=== PATIENT | female | born 2000 | race Caucasian/White ===

== ENCOUNTER 2021-06-08 14:36 | Emergency (ER) | payer OTHER ==
--- OUTSIDE RECORDS SUMMARY | 2021-06-08 14:40 | XMS REPORT | Continuity of Care Document ---
:2000 Author Organization [facility] t Address [address] [place] [address] Care Team Providers Name Role Phone Doreen Squires Primary Care Physician Manpreet SUAZO R Attending Clinician Doctor Unassigned, Name Attending Clinician Unavailable Payers Payer Name Policy Type Policy Effective Date Expiration Source Number Date MEDICAID PENDING 2021 [facility] PENDINGMEDICAID 00:00:00 [place] [facility] PENDINGPENDING20 [facility] [id number] [place] [id number] Advance Directives Directive Decision Effective Termination Comments Source Date Date Healthcare Agents on N/A Univ ersity FileNameRelationshipHealthcare [facility] Agent Medical RelationshipCommunicationUniversity Of [place] [facility] DirvonowskyMotherHealth Care [phone] (Home) Problems This patient has no known problems. Allergies, Adverse Reactions, Alerts Allergy Allergy Status Severity Reaction(s) Onset Inactive Treating Comm ents Source Name Type Date Date Clinician Iodine Drug Active Hives Univers Allergy 5-06 ity of 00:00: [address] [facility] Drug Active Hives 2020- Univers h Allergy 5-06 ity of Derived 00:00: [address] Social History Social Habit Start Date Stop Date Quantity Comments Source ASSERTION 2021-02-02 University of 00:00:00 [facility] History of Cigarette Smoker Universi ty of tobacco use [facility] Exposure to Not sure University of SARS-CoV-2 [facility] (event) Branch Tobacco use and 2021-03-20 2021-03-20 Never used Universit y of exposure 00:00:00 00:00:00 [facility] Alcohol intake 2021-03-20 2021-03-20 Ex-drinker University 00:00:00 00:00:00 (finding) [facility] Tobacco Comment 2021-03-20 2021-03-20 Stopping today Unive rsity of 00:00:00 00:00:00 [facility] Sex Assigned At [birth year] Universit y of 00:00:00 00:00:00 [facility] Smoking Status Start Date Stop Date Source Current some day smoker 2021-03-20 00:00:00 [facility] Medications This patient has no known medications. Vital Signs Vital Name Observation Time Observation Value Comments Source Systolic blood 2021-03-20 18:27:00 138 mm[Hg] Univer sity of [facility] Diastolic blood 2021-03-20 18:27:00 79 mm[Hg] Unive rsity of [facility] Heart rate 2021-03-20 18:27:00 86 /[facility] Body temperature 2021-03-20 18:27:00 36.61 Luh [facility] Respiratory rate 2021-03-20 18:27:00 16 /min [facility] Body height 2021-03-20 18:27:00 169 cm [facility] Body weight 2021-03-20 18:27:00 80.287 kg [facility] BMI 2021-03-20 18:27:00 28.11 kg/m2 [facility] Systolic blood 2021-03-20 18:27:00 138 mm[Hg] Univer sity of [facility] Diastolic blood 2021-03-20 18:27:00 79 mm[Hg] Unive rsity of [facility] Heart rate 2021-03-20 18:27:00 86 /min Universi [facility] Body temperature 2021-03-20 18:27:00 36.61 [facility] 2021-03-20 18:27:00 16 [facility] height 2021-03-20 18:27:00 169 cm [facility] Body weight 2021-03-20 18:27:00 80.287 kg [facility] BMI 2021-03-20 18:27:00 28.11 kg/m2 [facility] Procedures Procedure Date / Time Performed Performing Clinician Sourc e POCT TEST 2021-03-20 18:39:00 Ivon Case [facility] POCT URINALYSIS W/O 2021-03-20 18:39:00 Ivon Case [facility] NOTICE OF PRIVACY 2021-03-20 17:55:21 Doctor Unassigned, No Univ [facility] PRACTICES Name [facility] Plan of Care Planned Activity Planned Date Details Comments Source Future Scheduled 2021-07-16 INFLUENZA VACCINE Univer sity of Test 00:00:00 (Season Ended) [code [facility] edical = INFLUENZA VACCINE Branch (Season Ended)] Future Scheduled 2021-07-16 INFLUENZA VACCINE Univer sity of Test 00:00:00 (Season Ended) [code [facility] edical = INFLUENZA VACCINE Branch (Season Ended)] Future Scheduled 2021-07-16 INFLUENZA VACCINE Univer sity of Test 00:00:00 (Season Ended) [code [facility] edical = INFLUENZA VACCINE Branch (Season Ended)] Future Scheduled 2021-07-16 INFLUENZA VACCINE Univer sity of Test 00:00:00 (Season Ended) [code [facility] edical = INFLUENZA VACCINE Branch (Season Ended)] Future Scheduled 2021-07-16 INFLUENZA VACCINE Univer sity of Test 00:00:00 (Season Ended) [code [facility] edical = INFLUENZA VACCINE Branch (Season Ended)] Future Scheduled 2021-07-16 INFLUENZA VACCINE Univer sity of Test 00:00:00 (Season Ended) [code [facility] edical = INFLUENZA VACCINE Branch (Season Ended)] Diagnostic Test 2021-03-20 GALV ONLY - SYPHILIS Expected: Univ ersity of Pending 00:00:00 IGG/IGM [code = 03/20/2021, Amanda connelly 36747-1] Expires: Branch 03/20/2022 Diagnostic Test 2021-03-20 URINE CULTURE [code Expected: Unive rsity of Pending 00:00:00 = 630-4] 03/20/2021, [place] [facility] Expires: Branch 03/20/2022 Diagnostic Test 2021-03-20 VZV ANTIBODY SCREEN Expected: Unive rsity of Pending 00:00:00 [code = 23683-8] 03/20/2021, [place] [facility] Expires: Branch 03/20/2022 Diagnostic Test 2021-03-20 Glucose 1 Hour Post Expected: Unive rsity of Pending 00:00:00 Prandial [code = 03/20/2021, [place] [facility] 02906-6] Expires: Branch 03/20/2022 Diagnostic Test 2021-03-20 PAP Smear-Liquid Expected: Universi ty of Pending 00:00:00 Based [code = 68269] 03/20/2021, [facility] edical Expires: Branch 03/20/2022 Diagnostic Test 2021-03-20 CBC WITH DIFF [code Expected: Unive rsity of Pending 00:00:00 = 39758-5] 03/20/2021, [place] [facility] Expires: Branch 03/20/2022 Diagnostic Test 2021-03-20 GC & CHLAMYDIA Expected: University of Pending 00:00:00 AMPLIFIED ASSAY 03/20/2021, [place] [facility] [code = 50504-2] Expires: Branch 03/20/2022 Diagnostic Test 2021-03-20 HEPATITIS B SURFACE Expected: Unive rsity of Pending 00:00:00 ANTIGEN [code = [facility]20[facility] 6[facility] Expires: Branch 03/20/2022 Diagnostic Test 2021-03-20 HIV 1/2 AG-AB WITH Expected: Univer sity of Pending 00:00:00 REFLEX [code = 03/20/2021, [facility] 82430-4] Expires: Branch 03/20/2022 Diagnostic Test 2021-03-20 WORKUP, Expected: Universi ty of Pending 00:00:00 BLOOD BANK [code = 03/20/2021, [place] [facility] 3113] Expires: Branch 03/20/2022 Diagnostic Test 2021-03-20 RUBELLA SCREEN Expected: University of Pending 00:00:00 (ANNABELLA) IGG [code = 03/20/2021, [facility] dical 00707-4] Expires: Branch 03/20/2022 Diagnostic Test 2021-03-20 GALV ONLY - SYPHILIS Expected: Univ ersity of Pending 00:00:00 IGG/IGM [code = 03/20/2021, [place] [facility] 77487-3] Expires: Branch 03/20/2022 Diagnostic Test 2021-03-20 URINE CULTURE [code Expected: Unive rsity of Pending 00:00:00 = 630-4] 03/20/2021, [facility] Expires: Branch 03/20/2022 Diagnostic Test 2021-03-20 VZV ANTIBODY SCREEN Expected: Unive rsity of Pending 00:00:00 [code = 00615-8] 03/20/2021, [place] [facility] Expires: Branch 03/20/2022 Diagnostic Test 2021-03-20 Glucose 1 Hour Post Expected: Unive rsity of Pending 00:00:00 Prandial [code = 03/20/2021, [place] [facility] 65947-4] Expires: Branch 03/20/2022 Diagnostic Test 2021-03-20 CBC WITH DIFF [code Expected: Unive rsity of Pending 00:00:00 = 15299-7] 03/20/2021, [facility] Expires: Branch 03/20/2022 Diagnostic Test 2021-03-20 GC & CHLAMYDIA Expected: [facility] Pending 00:00:00 AMPLIFIED ASSAY 03/20/2021, [facility] [code = 83305-3] Expires: Branch 03/20/2022 Diagnostic Test 2021-03-20 HEPATITIS B SURFACE Expected: Unive rsity of Pending 00:00:00 ANTIGEN [code = 03/20/2021, [place] [facility] 58512-4] Expires: Branch 03/20/2022 Diagnostic Test 2021-03-20 HIV 1/2 AG-AB WITH Expected: Univer sity of Pending 00:00:00 REFLEX [code = 03/20/2021, [facility] 70200-4] Expires: Branch 03/20/2022 Diagnostic Test 2021-03-20 WORKUP, Expected: Lucia jaquez of Pending 00:00:00 BLOOD BANK [code = 03/20/2021, [facility] ical 3113] Expires: Branch 03/20/2022 Diagnostic Test 2021-03-20 RUBELLA SCREEN Expected: University of Pending 00:00:00 (ANNABELLA) IGG [code = 03/20/2021, [facility] dical 15170-5] Expires: Branch 03/20/2022 Diagnostic Test 2021-03-20 GALV ONLY - SYPHILIS Expected: Univ ersity of Pending 00:00:00 IGG/IGM [code = 03/20/2021, [facility] 37048-1[facility] Expires: Branch 03/20/2022 Diagnostic Test 2021-03-20 URINE CULTURE [code Expected: Unive rsity of Pending 00:00:00 = 630-4] 03/20/2021, [facility] Expires: Branch 03/20/2022 Diagnostic Test 2021-03-20 VZV ANTIBODY SCREEN Expected: Unive rsity of Pending 00:00:00 [code = 02205-8] 03/20/2021, [place] [facility] Expires: Branch 03/20/2022 Diagnostic Test 2021-03-20 Glucose 1 Hour Post Expected: Unive rsity of Pending 00:00:00 Prandial [code = 03/20/2021, [place] [facility] 65108-8] Expires: Branch 03/20/2022 Diagnostic Test 2021-03-20 CBC WITH DIFF [code Expected: Unive rsity of Pending 00:00:00 = 53588-2] 03/20/2021, [place] [facility] Expires: Branch 03/20/2022 Diagnostic Test 2021-03-20 GC & CHLAMYDIA Expected: University of Pending 00:00:00 AMPLIFIED ASSAY 03/20/2021, [place] [facility] [code = 55897-4] Expires: Branch 03/20/2022 Diagnostic Test 2021-03-20 HEPATITIS B SURFACE Expected: Unive rsity of Pending 00:00:00 ANTIGEN [code = 03/20/2021, [place] [facility] 43911-2] Expires: Branch 03/20/2022 Diagnostic Test 2021-03-20 HIV 1/2 AG-AB WITH Expected: Univer sity of Pending 00:00:00 REFLEX [code = 03/20/2021, [facility] 55467-3] Expires: Branch 03/20/2022 Diagnostic Test 2021-03-20 WORKUP, Expected: [facility] of Pending 00:00:00 BLOOD BANK [code = 03/20/2021, [facility] ical 3113] Expires: Branch 03/20/2022 Diagnostic Test 2021-03-20 RUBELLA SCREEN Expected: University Pending 00:00:00 (ANNABELLA) IGG [code = 03/20/2021, [facility] dical 68692-8] Expires: Branch 03/20/2022 Diagnostic Test 2021-03-20 GALV ONLY - SYPHILIS Expected: Univ ersity of Pending 00:00:00 IGG/IGM [code = 03/20/2021, [place] [facility] 69376-5] Expires: Branch 03/20/2022 Diagnostic Test 2021-03-20 URINE CULTURE [code Expected: Unive rsity of Pending 00:00:00 = 630-4] 03/20/2021, [place] [facility] Expires: Branch 03/20/2022 Diagnostic Test 2021-03-20 VZV ANTIBODY SCREEN Expected: Unive rsity of Pending 00:00:00 [code = 78812-2] 03/20/2021, [place] [facility] Expires: Branch 03/20/2022 Diagnostic Test 2021-03-20 Glucose 1 Hour Post Expected: Unive rsity of Pending 00:00:00 Prandial [code = 03/20/2021, [place] [facility] 48234-8] Expires: Branch 03/20/2022 Diagnostic Test 2021-03-20 PAP Smear-Liquid Expected: [facility] of Pending 00:00:00 Based [code = 68123] 03/20/2021, [place] [facility] Expires: Branch 03/20/2022 Diagnostic Test 2021-03-20 CBC WITH DIFF [code Expected: Unive rsity of Pending 00:00:00 = 08375-0] 03/20/2021, [place] [facility] Expires: Branch 03/20/2022 Diagnostic Test 2021-03-20 GC & CHLAMYDIA Expected: University of Pending 00:00:00 AMPLIFIED ASSAY 03/20/2021, [place] [facility] [code = 72328-9] Expires: Branch 03/20/2022 Diagnostic Test 2021-03-20 HEPATITIS B SURFACE Expected: Unive rsity of Pending 00:00:00 ANTIGEN [code = 03/20/2021, [place] [facility] 03359-9] Expires: Branch 03/20/2022 Diagnostic Test 2021-03-20 HIV 1/2 AG-AB WITH Expected: Univer sity of Pending 00:00:00 REFLEX [code = 03/20/2021, [facility] 83748-1] Expires: Branch 03/20/2022 Diagnostic Test 2021-03-20 WORKUP, Expected: Universi ty of Pending 00:00:00 BLOOD BANK [code = 03/20/2021, [facility] ical 3113] Expires: Branch 03/20/2022 Diagnostic Test 2021-03-20 RUBELLA SCREEN Expected: University of Pending 00:00:00 (ANNABELLA) IGG [code = 03/20/2021, [facility] dical 43051-1] Expires: Branch 03/20/2022 Diagnostic Test 2021-03-20 GALV ONLY - SYPHILIS Expected: Univ ersity of Pending 00:00:00 IGG/IGM [code = 03/20/2021, [facility] 34617-7[facility] Expires: Branch 03/20/2022 Diagnostic Test 2021-03-20 URINE CULTURE [code Expected: Unive rsity of Pending 00:00:00 = 630-4] 03/20/2021, [place] [facility] Expires: Branch 03/20/2022 Diagnostic Test 2021-03-20 VZV ANTIBODY SCREEN Expected: Unive rsity of Pending 00:00:00 [code = 42417-3] 03/20/2021, [place] [facility] Expires: Branch 03/20/2022 Diagnostic Test 2021-03-20 Glucose 1 Hour Post Expected: Unive rsity of Pending 00:00:00 Prandial [code = 03/20/2021, [place] [facility] 25641-6] Expires: Branch 03/20/2022 Diagnostic Test 2021-03-20 PAP Smear-Liquid Expected: Universi ty of Pending 00:00:00 Based [code = 04060] 03/20/2021, [facility] edical Expires: Branch 03/20/2022 Diagnostic Test 2021-03-20 CBC WITH DIFF [code Expected: Unive rsity of Pending 00:00:00 = 50299-0] 03/20/2021, [facility] Expires: Branch 03/20/2022 Diagnostic Test 2021-03-20 GC & CHLAMYDIA Expected: [facility] Pending 00:00:00 AMPLIFIED ASSAY 03/20/2021, [place] [facility] [code = 78913-8] Expires: Branch 03/20/2022 Diagnostic Test 2021-03-20 HEPATITIS B SURFACE Ex[facility]: [facility] Pending 00:00:00 ANTIGEN [code = 03/20/2021, [place] [facility] 99844-2] Expires: Branch 03/20/2022 Diagnostic Test 2021-03-20 HIV 1/2 AG-AB WITH Expected: Univer sity of Pending 00:00:00 REFLEX [code = 03/20/2021, [facility] 78249-5] Expires: Branch 03/20/2022 Diagnostic Test 2021-03-20 WORKUP, Expected: [facility] of Pending 00:00:00 BLOOD BANK [code = 03/20/2021, [place] [facility] 3113] Expires: Branch 03/20/2022 Diagnostic Test 2021-03-20 RUBELLA SCREEN Expected: [facility] Pending 00:00:00 (ANNABELLA) IGG [code = 03/20/2021, [facility] dical 72985-2] Expires: Branch 03/20/2022 Future Scheduled 2020 Screening for University of Test 00:00:00 malignant neoplasm [place] [facility] of cervix Branch (procedure) [code = 643584292] Future Scheduled 2020 Screening for University of Test 00:00:00 malignant neoplasm [place] [facility] of cervix Branch (procedure) [code = 715026980] Future Scheduled 2020 Screening for University of Test 00:00:00 malignant neoplasm [place] [facility] of cervix Branch (procedure) [code = 525609502] Future Scheduled 2020 Screening for University of Test 00:00:00 malignant neoplasm [place] [facility] of cervix Branch (procedure) [code = 851561666] Future Scheduled 2020 Screening for University of Test 00:00:00 malignant neoplasm [place] [facility] of cervix Branch (procedure) [code = 681484632] Future Scheduled 2020 Screening for University of Test 00:00:00 malignant neoplasm [facility] ical of cervix Branch (procedure) [code = 750690516] Future Scheduled 2018 DTaP,Tdap,and Td Univers ity of Test 00:00:00 Vaccines (1 - Tdap) [place] [facility] [code = Branch DTaP,Tdap,and Td Vaccines (1 - Tdap)] Future Scheduled 2018 DTaP,Tdap,and Td Univers ity of Test 00:00:00 Vaccines (1 - Tdap) [place] [facility] [code = Branch DTaP,Tdap,and Td Vaccines (1 - Tdap)] Future Scheduled 2018 DTaP,Tdap,and Td Univers ity of Test 00:00:00 Vaccines (1 - Tdap) [place] [facility] [code = Branch DTaP,Tdap,and Td Vaccines (1 - Tdap)] Future Scheduled 2018 DTaP,Tdap,and Td Univers ity of Test 00:00:00 Vaccines (1 - Tdap) [place] [facility] [code = Branch DTaP,Tdap,and Td Vaccines (1 - Tdap)] Future Scheduled 2018 DTaP,Tdap,and Td Univers ity of Test 00:00:00 Vaccines (1 - Tdap) [place] [facility] [code = Branch DTaP,Tdap,and Td Vaccines (1 - Tdap)] Future Scheduled 2018 DTaP,Tdap,and Td Univers ity of Test 00:00:00 Vaccines (1 - Tdap) [facility] dical [code = Branch DTaP,Tdap,and Td Vaccines (1 - Tdap)] Future Scheduled 2017 Hepatitis C University of Test 00:00:00 screening [place] [facility] (procedure) [code = Branch 017171405] Future Scheduled 2017 Hepatitis C University of Test 00:00:00 screening [place] [facility] (procedure) [code = Branch 267338428] Future Scheduled 2017 Hepatitis C University of Test 00:00:00 screening [place] [facility] (procedure) [code = Branch 646360003] Future Scheduled 2017 Hepatitis C University of Test 00:00:00 screening [place] [facility] (procedure) [code = Branch 129648615] Future Scheduled 2017 Hepatitis C University of Test 00:00:00 screening [place] [facility] (procedure) [code = Branch 265405508] Future Scheduled 2017 Hepatitis C University of Test 00:00:00 screening [place] [facility] (procedure) [code = Branch 048492533] Future Scheduled 2015 SARS-CoV-2 University of Test 00:00:00 (COVID-19) Vaccine [place] [facility] (1) [code = Branch SARS-CoV-2 (COVID-19) Vaccine (1)] Future Scheduled 2015 Screening for University of Test 00:00:00 Chlamydia [place] [facility] trachomatis Branch (procedure) [code = 253368455] Future Scheduled 2015 SARS-CoV-2 University of Test 00:00:00 (COVID-19) Vaccine [place] [facility] (1) [code = Branch SARS-CoV-2 (COVID-19) Vaccine (1)] Future Scheduled 2015 Screening for University of Test 00:00:00 Chlamydia [place] [facility] trachomatis Branch (procedure) [code = 481126754] Future Scheduled 2015 SARS-CoV-2 University of Test 00:00:00 (COVID-19) Vaccine [place] [facility] (1) [code = Branch SARS-CoV-2 (COVID-19) Vaccine (1)] Future Scheduled 2015 Screening for University of Test 00:00:00 Chlamydia [facility] trachomatis Branch (procedure) [code = 341609879] Future Scheduled 2015 SARS-CoV-2 University of Test 00:00:00 (COVID-19) Vaccine [place] [facility] (1) [code = Branch SARS-CoV-2 (COVID-19) Vaccine (1)] Future Scheduled 2015 Screening for University of Test 00:00:00 Chlamydia [place] [facility] trachomatis Branch (procedure) [code = 716837540] Future Scheduled 2015 SARS-CoV-2 University of Test 00:00:00 (COVID-19) Vaccine [place] [facility] (1) [code = Branch SARS-CoV-2 (COVID-19) Vaccine (1)] Future Scheduled 2015 Screening for University of Test 00:00:00 Chlamydia [place] [facility] trachomatis Branch (procedure) [code = 235253886] Future Scheduled 2015 SARS-CoV-2 University of Test 00:00:00 (COVID-19) Vaccine [place] [facility] (1) [code = Branch SARS-CoV-2 (COVID-19) Vaccine (1)] Future Scheduled 2015 Screening for University of Test 00:00:00 Chlamydia [place] [facility] trachomatis Branch (procedure) [code = 378014891] Future Scheduled 2011 Depression screening Uni versity of Test 00:00:00 (procedure) [code = [place] [facility] 095356459] Branch Future Scheduled 2011 Well child visit Univers ity of Test 00:00:00 (procedure) [code = [place] [facility] 695596658] Branch Future Scheduled 2011 Depression screening Uni versity of Test 00:00:00 (procedure) [code = [place] [facility] 970980110] Branch Future Scheduled 2011 Well child visit Univers ity of Test 00:00:00 (procedure) [code = [place] [facility] 817794858] Branch Future Scheduled 2011 Depression screening Uni versity of Test 00:00:00 (procedure) [code = [place] [facility] 023268028] Branch Future Scheduled 2011 Well child visit Univers ity of Test 00:00:00 (procedure) [code = [place] [facility] 174637050] Branch Future Scheduled 2011 Depression screening Uni versity of Test 00:00:00 (procedure) [code = [place] [facility] 281070640] Branch Future Scheduled 2011 Well child visit Univers ity of Test 00:00:00 (procedure) [code = [place] [facility] 236386388] Branch Future Scheduled 2011 Depression screening Uni versity of Test 00:00:00 (procedure) [code = [place] [facility] 517027701] Branch Future Scheduled 2011 Depression screening Uni versity of Test 00:00:00 (procedure) [code = [place] [facility] 319803196] Branch Future Scheduled 2011 Well child visit Univers ity of Test 00:00:00 (procedure) [code = [place] [facility] 132639567] Branch Future Scheduled 2011 Well child visit Univers ity of Test 00:00:00 (procedure) [code = [place] [facility] 124788568] Branch Future Scheduled 2010 HPV VACCINES (1 - Univer sity of Test 00:00:00 2-dose series) [code [facility] edical = HPV VACCINES (1 - Branch 2-dose series)] Future Scheduled 2010 HPV VACCINES (1 - Univer sity of Test 00:00:00 2-dose series) [code [facility] edical = HPV VACCINES (1 - Branch 2-dose series)] Future Scheduled 2010 HPV VACCINES (1 - Univer sity of Test 00:00:00 2-dose series) [code [facility] edical = HPV VACCINES (1 - Branch 2-dose series)] Future Scheduled 2010 HPV VACCINES (1 - Univer sity of Test 00:00:00 2-dose series) [code [facility] edical = HPV VACCINES (1 - Branch 2-dose series)] Future Scheduled 2010 HPV VACCINES (1 - Univer sity of Test 00:00:00 2-dose series) [code [facility] edical = HPV VACCINES (1 - Branch 2-dose series)] Future Scheduled 2010 HPV VACCINES (1 - Univer sity of Test 00:00:00 2-dose series) [code [facility] edical = HPV VACCINES (1 - Branch 2-dose series)] Future Scheduled 2009 MENINGOCOCCAL B Universi ty of Test 00:00:00 VACCINES (1 of 2 - [place] [facility] Risk Bexsero 2-dose Branch series) [code = MENINGOCOCCAL B VACCINES (1 of 2 - Risk Bexsero 2-dose series)] Future Scheduled 2009 MENINGOCOCCAL B Universi ty of Test 00:00:00 VACCINES (1 of 2 - [place] [facility] Risk Bexsero 2-dose Branch series) [code = MENINGOCOCCAL B VACCINES (1 of 2 - Risk Bexsero 2-dose series)] Future Scheduled 2009 MENINGOCOCCAL B Universi ty of Test 00:00:00 VACCINES (1 of 2 - [place] [facility] Risk Bexsero 2-dose Branch series) [code = MENINGOCOCCAL B VACCINES (1 of 2 - Risk Bexsero 2-dose series)] Future Scheduled 2009 MENINGOCOCCAL B Universi ty of Test 00:00:00 VACCINES (1 of 2 - [place] [facility] Risk Bexsero 2-dose Branch series) [code = MENINGOCOCCAL B VACCINES (1 of 2 - Risk Bexsero 2-dose series)] Future Scheduled 2009 MENINGOCOCCAL B Universi ty of Test 00:00:00 VACCINES (1 of 2 - [place] [facility] Risk Bexsero 2-dose Branch series) [code = MENINGOCOCCAL B VACCINES (1 of 2 - Risk Bexsero 2-dose series)] Future Scheduled 2009 MENINGOCOCCAL B Universi ty of Test 00:00:00 VACCINES (1 of 2 - [place] [facility] Risk Bexsero 2-dose Branch series) [code = MENINGOCOCCAL B VACCINES (1 of 2 - Risk Bexsero 2-dose series)] Future Scheduled 2005 PNEUMOCOCCAL 0-64 Univer sity of Test 00:00:00 YEARS COMBINED [place] [facility] SERIES (1 of 1 - Branch PPSV23) [code = PNEUMOCOCCAL 0-64 YEARS COMBINED SERIES (1 of 1 - PPSV23)] Future Scheduled 2005 PNEUMOCOCCAL 0-64 Univer sity of Test 00:00:00 YEARS COMBINED [place] [facility] SERIES (1 of 1 - Branch PPSV23) [code = PNEUMOCOCCAL 0-64 YEARS COMBINED SERIES (1 of 1 - PPSV23)] Future Scheduled 2005 PNEUMOCOCCAL 0-64 Univer sity of Test 00:00:00 YEARS COMBINED [place] [facility] SERIES (1 of 1 - Branch PPSV23) [code = PNEUMOCOCCAL 0-64 YEARS COMBINED SERIES (1 of 1 - PPSV23)] Future Scheduled 2005 PNEUMOCOCCAL 0-64 Univer sity of Test 00:00:00 YEARS COMBINED [place] [facility] SERIES (1 of 1 - Branch PPSV23) [code = PNEUMOCOCCAL 0-64 YEARS COMBINED SERIES (1 of 1 - PPSV23)] Future Scheduled 2005 PNEUMOCOCCAL 0-64 Univer sity of Test 00:00:00 YEARS COMBINED [place] [facility] SERIES (1 of 1 - Branch PPSV23) [code = PNEUMOCOCCAL 0-64 YEARS COMBINED SERIES (1 of 1 - PPSV23)] Future Scheduled 2000 VARICELLA VACCINES Unive rsity of Test 00:00:00 (1 of 2 - 2-dose [place] [facility] childhood series) Branch [code = VARICELLA VACCINES (1 of 2 - 2-dose childhood series)] Future Scheduled 2000 VARICELLA VACCINES Unive rsity of Test 00:00:00 (1 of 2 - 2-dose [place] [facility]) Branch [code = VARICELLA VACCINES (1 of 2 - 2-dose childhood series)] Future Scheduled 2000 VARICELLA VACCINES Unive rsity of Test 00:00:00 (1 of 2 - 2-dose [facility] childhood series) Branch [code = VARICELLA VACCINES (1 of 2 - 2-dose childhood series)] Future Scheduled 2000 VARICELLA VACCINES Unive rsity of Test 00:00:00 (1 of 2 - 2-dose [place] [facility] series) Branch [code = VARICELLA VACCINES (1 of 2 - 2-dose childhood series)] Future Scheduled 2000 VARICELLA VACCINES Unive rsity of Test 00:00:00 (1 of 2 - 2-dose [facility] childhood series) Branch [code = VARICELLA VACCINES (1 of 2 - 2-dose childhood series)] Future Scheduled 2000 VARICELLA VACCINES Unive rsity of Test 00:00:00 (1 of 2 - 2-dose [place] [facility] series) Branch [code = VARICELLA VACCINES (1 of 2 - 2-dose childhood series)] Future Scheduled VZV ANTIBODY SCREEN Univ ersity of Test [code = 44494-4] [facility] Branch Future Scheduled Glucose 1 Hour Post Univ ersity of Test Prandial [code = [facility] al 25483-2] Branch Future Scheduled CBC WITH DIFF [code Univ ersity of Test = 13281-8] [facility] Future Scheduled GC & CHLAMYDIA Universit y of Test AMPLIFIED ASSAY [facility] [code = 74249-6] Branch Future Scheduled HEPATITIS B SURFACE Univ ersity [facility] Test ANTIGEN [facility] 870[facility]0] Branch Future Scheduled HIV 1/2 AG-AB WITH Unive rsity of Test REFLEX [code = [facility] 59115-8] Branch Future Scheduled RUBELLA SCREEN Universit y of Test (ANNABELLA) IGG [code = [place] [facility] 43812-3] Branch Future Scheduled GALV ONLY - SYPHILIS Uni versity of Test IGG/IGM [code = [place] [facility] 04400-8] Branch Future Scheduled URINE CULTURE [code Univ ersity of Test = 630-4] [facility] Future Scheduled VZV ANTIBODY SCREEN Univ ersity of Test [code = 54748-5] [facility] Future Scheduled Glucose 1 Hour Post Univ ersity of Test Prandial [code = [facility] 64301-6] Branch Future Scheduled CBC WITH DIFF [code Univ ersity of Test = 19472-6] [facility] Future Scheduled GC & CHLAMYDIA Universit y of Test AMPLIFIED ASSAY [facility] [code = 11593-0] Branch Future Scheduled HEPATITIS B SURFACE Univ ersity of Test ANTIGEN [code = [facility] 48265-7] Branch Future Scheduled HIV 1/2 AG-AB WITH Unive rsity of Test REFLEX [code = [facility] 15432-8] Branch Future Scheduled RUBELLA SCREEN Universit y of Test (ANNABELLA) IGG [code = [facility] dical 01450-8] Branch Future Scheduled GALV ONLY - SYPHILIS Uni versity of Test IGG/IGM [code = [facility] 99046-1] Branch Future Scheduled URINE CULTURE [code Univ ersity of Test = 630-4] [facility] Future Scheduled VZV ANTIBODY SCREEN Univ ersity of Test [code = 16685-8] [facility] Future Scheduled Glucose 1 Hour Post Univ ersity of Test Prandial [code = [facility] 76738-8] Branch Future Scheduled PAP Smear-Liquid Univers ity of Test Based [code = 97132] [facility] Branch Future Scheduled CBC WITH DIFF [code Univ ersity of Test = 86821-6] [facility] Future Scheduled GC & CHLAMYDIA Universit y of Test AMPLIFIED ASSAY [facility] [code = 05162-0] Branch Future Scheduled HEPATITIS B SURFACE Univ ersity of Test ANTIGEN [code = [facility] 50570-3] Branch Future Scheduled HIV 1/2 AG-AB WITH Unive rsity of Test REFLEX [code = [facility] 26428-8] Branch Future Scheduled RUBELLA SCREEN Universit y of Test (ANNABELLA) IGG [code = [facility] dical 06898-5] Branch Future Scheduled GALV ONLY - SYPHILIS Uni versity of Test IGG/IGM [code = [facility] 59685-0] Branch Future Scheduled URINE CULTURE [code Univ ersity of Test = 630-4] [facility] Future Scheduled VZV ANTIBODY SCREEN Univ ersity of Test [code = 09611-8] [facility] Future Scheduled Glucose 1 Hour Post Univ ersity of Test Prandial [code = [facility] 94382-7] Branch Future Scheduled PAP Smear-Liquid Univers ity of Test Based [code = 67613] [facility] edical Branch Future Scheduled CBC WITH DIFF [code Univ ersity of Test = 09152-0] [facility] Future Scheduled GC & CHLAMYDIA Universit y of Test AMPLIFIED ASSAY [facility] [code = 00943-2] Branch Future Scheduled HEPATITIS B SURFACE Univ ersity of Test ANTIGEN [code = [facility] 54761-4] Branch Future Scheduled HIV 1/2 AG-AB WITH Unive rsity of Test REFLEX [code = [facility] 58941-3] Branch Future Scheduled RUBELLA SCREEN Universit y of Test (ANNABELLA) IGG [code = [facility] dical 19216-6] Branch Future Scheduled GALV ONLY - [place]PHILIS Uni versity of Test IGG/IGM [code = [facility] 49715-1] Branch Future Scheduled URINE CULTURE [code Univ ersity of Test = 630-4] [facility] Future Scheduled VZV ANTIBODY SCREEN Univ ersity of Test [code = 52198-6] [facility] Branch Future Scheduled Glucose 1 Hour Post Univ ersity of Test Prandial [code = [facility] 59807-0] Branch Future Scheduled CBC WITH DIFF [code Univ ersity of Test = 85856-3] [facility] Future Scheduled GC & CHLAMYDIA Universit y of Test AMPLIFIED ASSAY [facility] [code = 01011-9] Branch Future Scheduled HEPATITIS B SURFACE Univ ersity of Test ANTIGEN [code = [facility] 24760-4] Branch Future Scheduled HIV 1/2 AG-AB WITH Unive rsity of Test REFLEX [code = [facility] 13880-0] Branch Future Scheduled RUBELLA SCREEN Universit y of Test (ANNABELLA) IGG [code = [facility] dical 07416-7] Branch Future Scheduled GALV ONLY - [place]PHILIS Uni versity of Test IGG/IGM [code = [facility] 93353-1] Branch Future Scheduled URINE CULTURE [code Univ ersity of Test = 630-4] [facility] Encounters Start End Encounter Admission Attending Care Care Encounter Source Date/Time Date/Time Type Type Clinicians Facility Department ID 2021-03-20 2021-03-20 ELVIA Cornejo [id number] 13:02:28 14:17:19 Roshunda R ASSOCIATE MERCHANT [id number] Visit REGIONAL [id number] MATERNAL [id number] & CHILD [address] [place] [address] Results Test Description Test Time Test Comments Results Result Comments Source POCT URINALYSIS W/O SPECIFIC GRAVITY 2021-03-20 18:40:00 Test Item Value Reference Range Interpretation Comme nts POCT PH U (test code = 3254) 7 mg/dl 5-8 POCT U LEUK EST (test code = 3263) neg Negative - Negative POCT U NIT (test code = 3262) neg Negative - Negative POCT U PROT (test code = 3259) neg Negative - Negative POCT U GLU (test code = 3256) neg Negative - Negative POCT U KETONE (test code = 3258) neg Negative - Negative POCT U BLD (test code = 3257) neg Negative - Negative Lab Interpretation (test code = 29134-2) Normal [facility] URINALYSIS W/O SPECIFIC [id number] 18:40:00 Test Item Value Reference Range Interpretation Comments POCT PH U (test code = 3254) 7 mg/dl 5-8 POCT U LEUK EST (test code = neg Negative - Negative 3263) POCT U NIT (test code = 3262) neg Negative - Negative POCT U PROT (test code = 3259) neg Negative - Negative POCT U GLU (test code = 3256) neg Negative - Negative POCT U KETONE (test code = 3258) neg Negative - Negative POCT U BLD (test code = 3257) neg Negative - Negative Lab Interpretation (test code = Normal 83533-5) [facility] URINALYSIS W/O SPECIFIC [id number] 18:40:00 Test Item Value Reference Range Interpretation Comments POCT PH U (test code = 3254) 7 mg/dl 5-8 POCT U LEUK EST (test code = neg Negative - Negative 3263) POCT U NIT (test code = 3262) neg Negative - Negative POCT U PROT (test code = 3259) neg Negative - Negative POCT U GLU (test code = 3256) neg Negative - Negative POCT U KETONE (test code = 3258) neg Negative - Negative POCT U BLD (test code = 3257) neg Negative - Negative Lab Interpretation (test code = [facility] 26576-4[facility] [id number] 18:40:00 Test Item Value Reference Range Interpretation Comments POCT PH U (test code = 3254) 7 mg/dl 5-8 POCT U LEUK EST (test code = neg Negative - Negative 3263) POCT U NIT (test code = 3262) neg Negative - Negative POCT U PROT (test code = 3259) neg Negative - Negative POCT U GLU (test code = 3256) neg Negative - Negative POCT U KETONE (test code = 3258) neg Negative - Negative POCT U BLD (test code = 3257) neg Negative - Negative Lab Interpretation (test code = Normal 05660-5) [facility] URINALYSIS W/O SPECIFIC [id number] 18:40:00 Test Item Value Reference Range Interpretation Comments POCT PH U (test code = 3254) 7 mg/dl 5-8 POCT U LEUK EST (test code = neg Negative - Negative 3263) POCT U NIT (test code = 3262) neg Negative - Negative POCT U PROT (test code = 3259) neg Negative - Negative POCT U GLU (test code = 3256) neg Negative - Negative POCT U KETONE (test code = 3258) neg Negative - Negative POCT U BLD (test code = 3257) neg Negative - Negative Lab Interpretation (test code = Normal 49777-9) [facility] [id number] 18:39:00 Test Item Value Reference Range Interpretation Comments POCT PREG (test code = 1605) Positive On board controls acceptable with C Yes Line (test code = 3574) POCT PREG LOT # (test code = 3575) POCT PREG TEST DATE (test code = 3576) Lab Interpretation (test code = Normal 50713-4) [facility] [id number] 18:39:00 Test Item Value Reference Range Interpretation Comments POCT PREG (test code = 1605) Positive On board controls acceptable with C Yes Line (test code = 3574) POCT PREG LOT # (test code = 3575) POCT PREG TEST DATE (test code = 3576) Lab Interpretation (test code = Normal 64131-3) [facility] [id number] 18:39:00 Test Item Value Reference Range Interpretation Comments POCT PREG (test code = 1605) Positive On board controls acceptable with C Yes Line (test code = 3574) POCT PREG LOT # (test code = 3575) POCT PREG TEST DATE (test code = 3576) Lab Interpretation (test code = Normal 01563-5) [id number] 18:39:00 Test Item Value Reference Range Interpretation Comments POCT PREG (test code = 1605) Positive On board controls acceptable with C Yes Line (test code = 3574) POCT PREG LOT # (test code = 3575) POCT PREG TEST DATE (test code = 3576) Lab Interpretation (test code = Normal 54875-1) [facility] [id number] 18:39:00 Test Item Value Reference Range Interpretation Comments POCT PREG (test code = 1605) Positive On board controls acceptable with C Yes Line (test code = 3574) POCT PREG LOT # (test code = 3575) POCT PREG TEST DATE (test code = 3576) Lab Interpretation (test code = Normal 39210-1) [facility]
[2021-06-08 17:24] LABS: Urine Blood Negative (Negative); Urine Glucose Negative (Negative); Urine Protein 2+ (Negative); Urine Specific Gravity 1.015 (1.005-1.030); Urine pH 8.5 (5.0-7.0)
[2021-06-08 17:30] LABS: Absolute Lymphocytes (CBC) 1.2 K/uL (0.7-4.9); Basophils % 0.4 % (0-1.3); Hematocrit 32.4 % (36.0-45.0); Lymphocytes % 8.5 % (15.3-44.8); MPV 7.5 fL (7.6-11.3); RBC Red Blood Cell Count 3.58 M/uL (3.86-4.86)
[2021-06-08 17:38] LABS: Urine Specific Gravity/Preg 1.015 (1.005-1.030)
[2021-06-08 17:46] LABS: ALT/SGPT 14 U/L (12-78); AST/SGOT 5 U/L (15-37); Albumin 2.9 g/dL (3.4-5.0); Alkaline Phosphatase 70 U/L (45-117); BUN Blood Urea Nitrogen 4 mg/dL (7-18); Bicarbonate 27 mmol/L (21-32); Bilirubin Direct < 0.1 mg/dL (0-0.2); Bilirubin Total 0.3 mg/dL (0.2-1.0); Glucose Level 80 mg/dL (74-106); Lipase 27 U/L (73-393); Magnesium 1.8 mg/dL (1.8-2.4); Potassium 3.5 mmol/L (3.5-5.1); Protein, Total 7.4 g/dL (6.4-8.2); Sodium Level 138 mmol/L (136-145)
[2021-06-08 17:51] LABS: Urine Amorphous Sediment 3+ /HPF (NONE SEEN); Urine Bacteria 20-50 /HPF (<20); Urine Mucus 3+ /HPF (NONE SEEN); Urine RBC <5 /HPF (NONE SEEN)
[2021-06-08] MEDS ORDERED: FAMOTIDINE 20 MG/2 ML VIAL IV ONE (17:54)
[2021-06-08] MEDS ORDERED: NA CHLORIDE 0.9% 1,000 ML ONE (17:54)
[2021-06-08] MEDS ORDERED: ONDANSETRON 4 MG/2 ML VIAL ONE (17:54)
[2021-06-08 17:55] LABS: Barbiturates NEGATIVE (NEGATIVE); Benzodiazepines NEGATIVE (NEGATIVE); Cocaine NEGATIVE (NEGATIVE); METHAMPHETAM NEGATIVE (NEGATIVE); Methadone NEGATIVE (NEGATIVE); Opiates NEGATIVE (NEGATIVE); Phencyclidine NEGATIVE (NEGATIVE); THC Cannibis POSITIVE (NEGATIVE)
[2021-06-08] MEDS ORDERED: CEFTRIAXONE/SWI 1gm 1 GM/10 ML SYR ONE (18:56)
--- NOTE | 2021-06-08 19:20 | RAD REPORT ---
EXAM DESCRIPTION: US - OB Limited - 06/08/2021 7:05 pm CLINICAL HISTORY: ABD PAIN age. COMPARISON: No comparisons FINDINGS: A single cephalic presenting gestation is identified. Heart rate normal. The intracranial contents and spine are grossly normal. A normal stomach bubble is noted. A nor mal fluid-filled urinary bladder seen without pelviectasis. The cord appears three-vessel. Four -chamber view of the heart is grossly unremarkable for gestational age. No gross abnormalities are id entifiable for gestational age. measurements are as follows: BPD:4.4 Centimeters 19 weeks 1 day HC:15.7 Centimeters 18 weeks 4 days AC:13.7 Centimeters 19 weeks 1 day FL:2.8 Centimeters 18 weeks 3 day The estimated gestational age (EGA) is 18 week 5 day with an ADWOA of11/04/2021. Anterior placenta without previa. The maternal adnexa show no worrisome findings. IMPRESSION: 1. Single gestation with an EGA of 18 weeks 5 day and an ADWOA of the 11/04/2021. 2. No gross abnormalities are identifiable. 3. Anterior placenta without previa.
--- NOTE | 2021-06-10 16:50 | ER ---
Nurse's Notes [facility] Name: Priscilla Negron Age: 20 yrs Sex: Female : 2000 Arrival Date: 06/08/2021 Time: 14:36 Bed 24 Private MD: Diagnosis: Nausea with vomiting, unspecified;Acute upper respiratory infection, unspecified;UTI/ Urinary tract infection, site not specified;18 weeks gestation of Presentation: 06/08 14:40 Chief complaint: Patient states: N/V, sinus congestion and dental pain that began 1 ss week ago. Pt reports that she is 18 weeks . Coronavirus screen: Client denies travel out of the [place] in the last 14 days. Ebola Screen: Patient denies exposure to infectious person. Patient denies travel to an Ebola-affected area in the 21 days before illness onset. Initial Sepsis Screen: Does the patient meet any 2 criteria? No. Patient's initial sepsis screen is negative. Does the patient have a suspected source of infection? No. Patient's initial sepsis screen is negative. Risk Assessment: Do you want to hurt yourself or someone else? Patient reports no desire to harm self or others. Onset of symptoms was June 01, 2021. 14:40 Method Of Arrival: Ambulatory ss 14:40 Acuity: TRA 3 ss Triage Assessment: 16:30 General: Appears in no apparent distress. Behavior is calm. 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 - Social history:: Smoking status: Patient denies any tobacco usage or history of. Screenin:30 Abuse screen: Denies threats or abuse. Denies injuries from another. Nutritional zb screening: No deficits noted. Tuberculosis screening: No symptoms or risk factors identified. Fall Risk None identified. Assessment: 16:30 General: Appears uncomfortable, Behavior is calm, cooperative, appropriate for age. zb Pain: Complains of pain in forehead. Neuro: Level of Consciousness is awake, Oriented to person, place, time, situation. Cardiovascular: Patient's skin is warm and dry. Respiratory: Airway is patent is compromised Respiratory effort is even, unlabored, Respiratory pattern is regular, symmetrical. GI: Reports nausea, vomiting. Derm: Skin is intact, is healthy with good turgor, Skin is dry, Skin is normal. Musculoskeletal: Range of motion: intact in all extremities. Vital Signs: 14:40 BP 135 / 82; Pulse 99; Resp 16; Temp 98.3(TE); Pulse Ox 99% on R/A; Weight 83.91 kg; ss Height 5 ft. 9 in. (175.26 cm); Pain 5/10; 14:40 Body Mass Index 27.32 (83.91 kg, 175.26 cm) ss ED Course: 14:36 Patient arrived in ED. ds1 14:42 Triage completed. ss 14:42 Arm band placed on right wrist. ss 16:03 Dionte Kim PA is PHCP. cp 16:03 Michael Del Toro MD is Attending Physician. cp 16:25 Catarina Ortiz RN is Primary Nurse. zb 16:30 Patient has correct armband on for positive identification. Adult w/ patient. Pulse ox zb on. NIBP on. Door closed. Noise minimized. 16:30 No provider procedures requiring assistance completed. Inserted saline lock: 20 gauge zb in right antecubital area, using aseptic technique. Blood collected. 19:04 US OB Limited In Process Unspecified. EDMS 19:34 Bharat Tom MD is Referral Physician. cp 20:00 IV discontinued, intact, bleeding controlled, No redness/swelling at site. Pressure zb dressing applied. Administered Medications: 17:36 Drug: Zofran (Ondansetron) 4 mg Route: IVP; Site: right antecubital; zb 20:00 Follow up: Response: No adverse reaction; Nausea is decreased zb 17:36 Drug: Pepcid (famotidine) 20 mg Route: IVP; Site: right antecubital; zb 20:00 Follow up: Response: No adverse reaction zb 17:36 Drug: NS 0.9% 1000 ml Route: IV; Rate: 1000 ml/hr; Site: right antecubital; zb 20:00 Follow up: Response: No adverse reaction; IV Status: Completed infusion; IV Intake: zb 1000ml 19:56 Drug: Rocephin (cefTRIAXone) 1 grams Route: IV; Rate: calculated rate; Site: right zb antecubital; 20:00 Follow up: Response: No adverse reaction; IV Status: Completed infusion; IV Intake: 10mlzb Intake: 20:00 IV: 10ml; Total: 10ml. zb 20:00 IV: 1000ml; Total: 1010ml. zb Outcome: 19:35 Discharge ordered by MD. cp 19:56 Patient left the ED. zb 19:56 Discharged to home ambulatory. zb 19:56 Condition: stable 19:56 Discharge instructions given to patient, Instructed on discharge instructions, follow up and referral plans. medication usage, Demonstrated understanding of instructions, follow-up care, medications, Prescriptions given X 2. Signatures: Dispatcher [employer] [facility] Judy Blum ds1 Aan Benavidez RN RN ss Page, Corey, PA PA cp Brown, Zipporah, RN RN zb Corrections: (The following items were deleted from the chart) 14:43 14:42 Home Meds: None; ss
--- NOTE | 2021-06-10 16:51 | EDPHYS ---
Physician Documentation [facility] Name: Priscilla Negron Age: 20 yrs Sex: Female : 2000 Arrival Date: 06/08/2021 Time: 14:36 Bed 24 Private MD: ED Physician Michael Del Toro HPI: 06/08 16:35 This 20 yrs old Female presents to ER via Ambulatory with complaints of 18 cp Wks Preg Vomiting, Congestion, Cough. 16:35 The patient presents to the emergency department with nausea and vomiting, that started cp 2 day(s) ago, and is intermittent, described as bilious. 16:35 The estimated gestational age is 18 weeks. course: care: private OB cp physician, Leakage of Fluid: none appreciated. Associated signs and symptoms: Pertinent negatives: abdominal pain, diarrhea, fever, vaginal bleeding, vaginal discharge. 16:35 The patient or guardian reports cough, that is intermittent. cp 16:35 Associated signs and symptoms: Pertinent positives: sore throat, nasal congestion, sore cp throat. [employer]: 14:42 LMP N/A - Irregular menses ss 16:35 1, Full Term 0, Living 0, Verified cp Historical: - Allergies: 14:42 Iodine; ss 14:42 shrimp; ss - Home Meds: 14:42 Promethazine Oral [Active]; ss - PMHx: 14:42 None; ss - PSHx: 14:42 None; ss - Immunization history:: Adult Immunizations not up to date. - Social history:: Smoking status: Patient denies any tobacco usage or history of. ROS: 16:40 Constitutional: Positive for poor PO intake, Negative for body aches, chills, fever. cp 16:40 Eyes: Negative for injury, pain, redness, and discharge. cp 16:40 ENT: Positive for sinus congestion, sore throat, Negative for drainage from ear(s), ear pain, difficulty swallowing, difficulty handling secretions. 16:40 Cardiovascular: Negative for chest pain. 16:40 Respiratory: Positive for cough, with no reported sputum, Negative for shortness of breath, wheezing. 16:40 Abdomen/GI: Positive for nausea and vomiting, Negative for abdominal pain, diarrhea, constipation. 16:40 Skin: Negative for rash. 16:40 Neuro: Negative for altered mental status, headache. 16:40 All other systems are negative. Exam: 16:45 Constitutional: The patient appears in no acute distress, alert, awake, non-toxic, well cp developed, well nourished. 16:45 Head/Face: Normocephalic, atraumatic. cp 16:45 Eyes: Periorbital structures: appear normal, Conjunctiva: normal, no exudate, no injection, Sclera: no appreciated abnormality, Lids and lashes: appear normal, bilaterally. 16:45 ENT: External ear(s): are unremarkable, Ear canal(s): are normal, clear, TM's: dullness, bilaterally, Nose: is normal, Mouth: Lips: moist, Oral mucosa: moist, Posterior pharynx: Airway: no evidence of obstruction, patent, Tonsils: no enlargement, no exudate, erythema, that is mild, exudate, is not appreciated, Voice: is normal. 16:45 Neck: Lymph nodes: no appreciated lymphadenopathy. 16:45 Chest/axilla: Inspection: normal, Palpation: is normal, no crepitus, no tenderness. 16:45 Cardiovascular: Rate: normal, Rhythm: regular. 16:45 Respiratory: the patient does not display signs of respiratory distress, Respirations: normal, no use of accessory muscles, no retractions, labored breathing, is not present, Breath sounds: bronchial sounds, are not appreciated, decreased breath sounds, are not appreciated, + upper airway congestion. wheezing: is not appreciated. 16:45 Abdomen/GI: Inspection: abdomen appears normal, Bowel sounds: active, all quadrants, Palpation: abdomen is soft and non-tender, in all quadrants. 16:45 Back: CVA tenderness, is absent. 16:45 Skin: no rash present. Vital Signs: 14:40 BP 135 / 82; Pulse 99; Resp 16; Temp 98.3(TE); Pulse Ox 99% on R/A; Weight 83.91 kg; ss Height 5 ft. 9 in. (175.26 cm); Pain 5/10; 14:40 Body Mass Index 27.32 (83.91 kg, 175.26 cm) ss MDM: 16:06 Patient medically screened. cp 17:00 Differential diagnosis: dehydration, strep throat, sinusitis, UTI. cp 19:35 Data reviewed: vital signs, nurses notes, lab test result(s), radiologic studies, cp ultrasound. 19:35 Counseling: I had a detailed discussion with the patient and/or guardian regarding: the cp historical points, exam findings, and any diagnostic results supporting the discharge/admit diagnosis, lab results, radiology results, the need for outpatient follow up, an OB/Gyne specialist, to return to the emergency department if symptoms worsen or persist or if there are any questions or concerns that arise at home. Response to treatment: the patient's symptoms have markedly improved after treatment, patient is well hydrated. VSS. Nausea markedly improved and vomiting resolved. Will discharge to home for continued monitoring. 06/08 16: Order name: Influenza Screen (a \\T\\ B) 06/08 16: Order name: Strep; Complete Time: 17:55 06/08 16: Order name: COVID-19 : Document "Date of Symptom Onset" if Symptomatic. 06/08 16: Order name: Basic Metabolic Panel; Complete Time: 17:55 06/08 17:55 Interpretation: Normal except: BUN 4; CRE 0.54. 06/08 16: Order name: CBC with Diff; Complete Time: 17:37 06/08 17:38 Interpretation: Normal except: WBC 14.30; RBC 3.58; HGB 11.2; HCT 32.4; MPV 7.5; RENEE% cp 82.1; LYM% 8.5; NEUT A 11.7. 06/08 16: Order name: Hepatic Function; Complete Time: 17:55 06/08 17:55 Interpretation: Normal except: AST 5; ALB 2.9; GLOB 4.5; A/G 0.6. 06/08 16: Order name: Lipase; Complete Time: 17:55 06/08 16:26 Order name: Urine Microscopic Only; Complete Time: 17:55 06/08 17:55 Interpretation: Normal except: UWBC 10-20; UBACT 20-50; SQEPI 5-10; MUCUS 3+; AMORPH 3+. 06/08 16:26 Order name: Urine Drug Screen; Complete Time: 17:57 06/08 17:57 Interpretation: Normal except: THC POSITIVE. 06/08 16: Order name: Magnesium; Complete Time: 17:55 06/08 16:26 Order name: Influenza Screen (A ; Complete Time: 17:55 [facility] 06/08 16:37 Order name: SARS-COV-2 RT PCR; Complete Time: 17:37 [facility] 06/08 17:40 Interpretation: Results reviewed. 06/08 17:24 Order name: Urine Dipstick-Ancillary; Complete Time: 17:37 [facility] 06/08 17:38 Interpretation: Normal except: UKET Trace; UPH 8.5; UPROT 2+; UESTR 3+. 06/08 16:26 Order name: IV Saline Lock; Complete Time: 18:21 cp 06/08 16:26 Order name: Labs collected and sent; Complete Time: 18:21 cp 06/08 16:26 Order name: Urine Test (obtain specimen); Complete Time: 18:21 06/08 16:26 Order name: Urine Dipstick-Ancillary (obtain specimen); Complete Time: 18:21 cp 06/08 17:30 Order name: Urine --Ancillary (enter results); Complete Time: 17:55 eb 06/08 17:52 Order name: Urine Culture [facility] 06/08 17:52 Order name: Throat Culture [facility] 06/08 17:58 Order name: US OB Limited; Complete Time: 19:22 cp 06/08 19:00 Order name: PO challenge; Complete Time: 19:56 cp Administered Medications: 17:36 Drug: Zofran (Ondansetron) 4 mg Route: IVP; Site: right antecubital; zb 20:00 Follow up: Response: No adverse reaction; Nausea is decreased zb 17:36 Drug: Pepcid (famotidine) 20 mg Route: IVP; Site: right antecubital; zb 20:00 Follow up: Response: No adverse reaction zb 17:36 Drug: NS 0.9% 1000 ml Route: IV; Rate: 1000 ml/hr; Site: right antecubital; zb 20:00 Follow up: Response: No adverse reaction; IV Status: Completed infusion; IV Intake: zb 1000ml 19:56 Drug: Rocephin (cefTRIAXone) 1 grams Route: IV; Rate: calculated rate; Site: right zb antecubital; 20:00 Follow up: Response: No adverse reaction; IV Status: Completed infusion; IV Intake: 10mlzb Disposition Summary: 06/08/21 19:35 Discharge Ordered Location: Home cp Problem: new cp Symptoms: have improved cp Condition: Stable cp Diagnosis - Nausea with vomiting, unspecified cp - Acute upper respiratory infection, unspecified cp - UTI/ Urinary tract infection, site not specified cp - 18 weeks gestation of cp Followup: cp - With: Bharat Tom MD - When: 2 - 3 days - Reason: Recheck today's complaints Discharge Instructions: - Discharge Summary Sheet cp - Urinary Tract Infection, Adult cp - Second Trimester of cp - Cool Mist Vaporizer cp Forms: - Medication Reconciliation Form cp - Thank You Letter cp - Antibiotic Education cp - Prescription Opioid Use cp Prescriptions: - Augmentin 875-125 mg Oral Tablet - take 1 tablet by ORAL route every 12 hours for 10 days; 20 tablet; Refills: 0, cp Product Selection Permitted - promethazine 25 mg Oral Tablet - take 1 tablet by ORAL route every 6 hours As needed; 20 tablet; Refills: 0, cp Product Selection Permitted Signatures: Dispatcher [employer] Ana Holloway RN RN ss Page, Corey, PA PA Catarina Morris RN RN zb Corrections: (The following items were deleted from the chart) 14:43 14:42 Home Meds: None; ss ss 15:32 14:49 CORONAVIRUS+MR.LAB.BRZ ordered. EDGA EDMS 18:21 16:26 FHT's ordered. cp zb
[2021-06-10 22:49] VITALS: BP 135/82; TEMP 98.3; O2SAT 99
== END 2021-06-08 19:56 | disposition home or self-care (01) ==
LOC: ER 14:36
DX: O99.512 Diseases of the respiratory system complicating pregnancy, second trimester (principal); J06.9 Acute upper respiratory infection, unspecified; O23.42 Unspecified infection of urinary tract in pregnancy, second trimester; Z3A.18 18 weeks gestation of pregnancy; Z20.822 Contact with and (suspected) exposure to COVID-19; Z91.013 Allergy to seafood; Z91.048 Other nonmedicinal substance allergy status
CPT/HCPCS: 96361; 87070; 87088; 85025; 87086; 80048; 36415; 83735; 81025; 80076; 87081; 83690; 80307; 87804 ×2; 76815; 96375; 96374; 99284; U0003; J0696; J7030; J2405; 81003; 81015

== ENCOUNTER 2021-10-27 09:29 | Inpatient (IN) | payer OTHER ==
--- OUTSIDE RECORDS SUMMARY | 2021-10-27 09:34 | XMS REPORT | Continuity of Care Document ---
:2000 Author Organization [facility] t Address [address] [place] [address] Care Team Providers Name Role Phone Doreen Squires Primary Care Physician Doreen CASE Attending Clinician Unavailable Doreen Squires Attending Clinician Doctor Unassigned, Name Attending Clinician Unavailable Payers Payer Name Policy Type Policy Number Effective Date Expiration Date S marry MEDICAID [facility] [id number] 2021 00:00:00 MEDICAID PENDING PENDING 2021 00:00:00 Advance Directives Directive Decision Effective Termination Comments Source Date Date Healthcare Agents on N/A Univ ersity FileNameRelationshipHealthcare [facility] Agent Medical RelationshipCommunicationAsp[facility] DirvonowskyMotherHealth Care [phone] (Home) Problems Condition Condition Condition Status Onset Resolution Last Treating Co mments Source Name Details Category Date Date Treatment Clinician Date No known No known Disease Unive rs active active ity of problems problems [facility] Allergies, Adverse Reactions, Alerts Allergy Allergy Status Severity Reaction(s) Onset Inactive Treating Comm ents Source Name Type Date Date Clinician Iodine Drug Active Hives 0 Univers Allergy 5-06 ity of 00:00: [address] Shellfis Drug Active Hives 2020- Univers h Allergy 5-06 ity of Derived 00:: [address] IODINE DRUG Active Low Hives 2020- Univers INGREDI 5-06 ity of 00:00: [address] SHELLFIS DRUG Active Low Hives Univers H INGREDI 5-06 ity of DERIVED 00:00: [address] NO KNOWN Drug Active Univers ALLERGIE Class ity of S [facility] Social History Social Habit Start Date Stop Date Quantity Comments Source ASSERTION 2021-02-02 [facility] 00:00:00 [facility] History of Cigarette Smoker Universi ty of tobacco use [facility] Exposure to Not sure University of SARS-CoV-2 [facility] (event) Branch Tobacco use and 2021-03-20 2021-03-20 Never used Universit y of exposure 00:00:00 00:00:00 [facility] Alcohol intake 2021-03-20 2021-03-20 Ex-drinker [facility] 00:00:00 00:00:00 (finding) [facility] Tobacco Comment 2021-03-20 2021-03-20 Stopping today Unive rsity of 00:00:00 00:00:00 [facility] Sex Assigned At [birth year] Universit y of 00:00:00 00:00:00 [facility] Smoking Status Start Date Stop Date Source Unknown if ever smoked Universit y of [facility] Current some day smoker 2021-03-20 00:00:00 [facility] Medications Ordered Filled Start Stop Current Ordering Indication Dosage Frequency Signature Comments Components Source Medication Medication Date Date Medication? Clinician (SIG) Name Name No known No Univers medications [facility] No known No Univers medications [facility] No known No Univers medications [facility] No known No Univers medications [facility] No known No Univers medications [facility] Vital Signs Vital Name Observation Time Observation Value Comments Source Systolic blood 2021-03-20 18:27:00 138 mm[Hg] Univer sity of pressure [facility] Diastolic blood 2021-03-20 18:27:00 79 mm[Hg] Unive rsity [facility] Heart rate 2021-03-20 18:27:00 86 /min Universi ty of [facility] Body temperature 2021-03-20 18:27:00 36.61 [facility] Res[facility] rate 2021-03-20 18:27:00 16 /min Univ [facility] Body height 2021-03-20 18:27:00 169 cm [facility] Body weight 2021-03-20 18:27:00 80.287 kg [facility] BMI 2021-03-20 18:27:00 28.11 kg/m2 [facility] Systolic blood 2021-03-20 18:27:00 138 mm[Hg] Univer sity of pressure [facility] Diastolic blood 2021-03-20 18:27:00 79 mm[Hg] Unive rsity of pressure [facility] Heart rate 2021-03-20 18:27:00 86 /min [facility] Body temperature 2021-03-20 18:27:00 36.61 Luh Univ ersity [facility] Respiratory rate 2021-03-20 18:27:00 16 /min Univ ers[facility] Body height 2021-03-20 18:27:00 169 cm [facility] Body weight 2021-03-20 18:27:00 80.287 kg [facility] BMI 2021-03-20 18:27:00 28.11 kg/m2 [facility] Systolic blood 2021-03-20 18:27:00 138 mm[Hg] Univer sity of pressure [facility] Diastolic blood 2021-03-20 18:27:00 79 mm[Hg] Unive rsity of pressure [facility] Heart rate 2021-03-20 18:27:00 86 /min [facility] Body temperature 2021-03-20 18:27:00 36.61 Luh Univ ersity of [facility] Respiratory rate 2021-03-20 18:27:00 16 /min Univ ers[facility] Body height 2021-03-20 18:27:00 169 cm [facility] Body weight 2021-03-20 18:27:00 80.287 kg [facility] BMI 2021-03-20 18:27:00 28.11 kg/m2 [facility] Systolic blood 2021-03-20 18:27:00 138 mm[Hg] Univer sity of pressure [facility] Diastolic blood 2021-03-20 18:27:00 79 mm[Hg] Unive rsity of pressure [facility] Heart rate 2021-03-20 18:27:00 86 /min [facility]i ty [facility] Body temperature 2021-03-20 18:27:00 36.61 Luh Univ ersity of [facility] Respiratory rate 2021-03-20 18:27:00 16 /min Univ ersity of [facility] Body height 2021-03-20 18:27:00 169 cm [facility] ty [facility] Body weight 2021-03-20 18:27:00 80.287 kg [facility] BMI 2021-03-20 18:27:00 28.11 kg/m2 [facility] Systolic blood 2021-03-20 18:27:00 138 mm[Hg] Univer sity of pressure [facility] Diastolic blood 2021-03-20 18:27:00 79 mm[Hg] Unive rsity of pressure [facility] Heart rate 2021-03-20 18:27:00 86 /min [facility]i ty [facility] Body temperature 2021-03-20 18:27:00 36.61 Luh Univ ersity of [facility] Respiratory rate 2021-03-20 18:27:00 16 /min Univ ersity of [facility] Body height 2021-03-20 18:27:00 169 cm [facility]i ty [facility] Body weight 2021-03-20 18:27:00 80.287 kg [facility] BMI 2021-03-20 18:27:00 28.11 kg/m2 [facility] Systolic blood 2021-03-20 18:27:00 138 mm[Hg] Univer sity of pressure [facility] Diastolic blood 2021-03-20 18:27:00 79 mm[Hg] Unive rsity of pressure [facility] Heart rate 2021-03-20 18:27:00 86 /min [facility]i ty [facility] Body temperature 2021-03-20 18:27:00 36.61 Luh Univ ersity of [facility] Respiratory rate 2021-03-20 18:27:00 16 /min Univ ersity of [facility] Body height 2021-03-20 18:27:00 169 cm [facility]i ty [facility] Body weight 2021-03-20 18:27:00 80.287 kg [facility] BMI 2021-03-20 18:27:00 28.11 kg/m2 [facility] Procedures Procedure Date / Time Performed Performing Clinician Sourc e POCT TEST 2021-03-20 18:39:00 Ivon Case Univsophia rsity [facility] POCT URINALYSIS W/O 2021-03-20 18:39:00 Ivon Case Unive rsity of [facility] POCT TEST 2021-03-20 18:39:00 [facility]/O 2021-03-20 18:39:00 [facility] NOTICE OF PRIVACY 2021-03-20 17:55:21 Doctor Unassigned, No Univ ersity of [facility] Name [facility] [place] NOTICE OF PRIVACY 2021-03-20 17:55:21 Doctor Unassigned, No Univ ersity of [facility] Name [facility] Plan of Care Planned Activity Planned Date Details Comments Source Future Scheduled 2021-07-16 INFLUENZA VACCINE Univer sity of Test 00:00:00 (Season Ended) [code [facility] = INFLUENZA VACCINE Branch (Season Ended)] Future Scheduled 2021-07-16 INFLUENZA VACCINE Univer sity of Test 00:00:00 (Season Ended) [code [facility] = INFLUENZA VACCINE Branch (Season Ended)] Future Scheduled 2021-07-16 INFLUENZA VACCINE Univer sity of Test 00:00:00 (Season Ended) [code [place] [facility] = INFLUENZA VACCINE Branch (Season Ended)] Future Scheduled 2021-07-16 INFLUENZA VACCINE Univer sity of Test 00:00:00 (Season Ended) [code [place] [facility] = INFLUENZA VACCINE Branch (Season Ended)] Future Scheduled 2021-07-16 INFLUENZA VACCINE Univer sity of Test 00:00:00 (Season Ended) [code [place] [facility] = INFLUENZA VACCINE Branch (Season Ended)] Future Scheduled 2021-07-16 INFLUENZA VACCINE Univer sity of Test 00:00:00 (Season Ended) [code [place] [facility] = INFLUENZA VACCINE Branch (Season Ended)] Diagnostic Test 2021-03-20 Glucose 1 Hour Post Expected: Unive rsity of Pending 00:00:00 Prandial [code = 03/20/2021[facility] 0[facility]-8] Expires: Branch 03/20/2022 Diagnostic Test 2021-03-20 CBC WITH DIFF [code Expected: Unive rsity of Pending 00:00:00 = 81195-7] 03/20/2021, [facility] Expires: Branch 03/20/2022 Diagnostic Test 2021-03-20 GC & CHLAMYDIA Expected: University of Pending 00:00:00 AMPLIFIED ASSAY 03/20/2021, [place] [facility] [code = 26951-2] Expires: Branch 03/20/2022 Diagnostic Test 2021-03-20 HEPATITIS B SURFACE Expected: Unive rsity of Pending 00:00:00 ANTIGEN [code = [facility]20[facility] 437[facility] Expires: Branch 03/20/2022 Diagnostic Test 2021-03-20 HIV 1/2 AG-AB WITH Expected: Univer sity of Pending 00:00:00 REFLEX [code = 03/20/2021, [facility] 32420-5] Expires: Branch 03/20/2022 Diagnostic Test 2021-03-20 WORKUP, Expected: [facility] of Pending 00:00:00 BLOOD BANK [code = 03/20/2021, [place] [facility] 3113] Expires: Branch 03/20/2022 Diagnostic Test 2021-03-20 RUBELLA SCREEN Expected: [facility] Pending 00:00:00 (ANNABELLA) IGG [code = 03/20/2021, [facility] dical 85252-2] Expires: Branch 03/20/2022 Diagnostic Test 2021-03-20 GALV ONLY - SYPHILIS Expected: Univ ersity of Pending 00:00:00 IGG/IGM [code = 03[facility]20/2021[facility] 60[facility] Expires: Branch 03/20/2022 Diagnostic Test 2021-03-20 URINE CULTURE [code Expected: Unive rsity of Pending 00:00:00 = 630-4] 03/20/2021, [facility] Expires: Branch 03/20/2022 Diagnostic Test 2021-03-20 VZV ANTIBODY SCREEN Expected: Unive rsity of Pending 00:00:00 [code = 21522-9] 03/20/2021, [place] [facility] Expires: Branch 03/20/2022 Diagnostic Test 2021-03-20 Glucose 1 Hour Post Expected: Unive rsity of Pending 00:00:00 Prandial [code = 03/20/2021, [place] [facility] 02787-0] Expires: Branch 03/20/2022 Diagnostic Test 2021-03-20 PAP Smear-Liquid Expected: Universi ty of Pending 00:00:00 Based [code = 20697] 03/20/2021, [place] [facility] Expires: Branch 03/20/2022 Diagnostic Test 2021-03-20 CBC WITH DIFF [code Expected: Unive rsity of Pending 00:00:00 = 24787-2] 03/20/2021, [place] [facility] Expires: Branch 03/20/2022 Diagnostic Test 2021-03-20 GC & CHLAMYDIA Expected: University of Pending 00:00:00 AMPLIFIED ASSAY 03/20/2021, [place] [facility] [code = 82741-5] Expires: Branch 03/20/2022 Diagnostic Test 2021-03-20 HEPATITIS B SURFACE Expected: Unive rsity of Pending 00:00:00 ANTIGEN [code = 03/20/2021[facility] 14045[facility] Expires: Branch 03/20/2022 Diagnostic Test 2021-03-20 HIV 1/2 AG-AB WITH Expected: Univer sity of Pending 00:00:00 REFLEX [code = 03/20/2021, [facility] 57189-6] Expires: Branch 03/20/2022 Diagnostic Test 2021-03-20 WORKUP, [facility] Pending 00:00:00 BLOOD BANK [code = 03/20/2021, [place] [facility] 3113] Expires: Branch 03/20/2022 Diagnostic Test 2021-03-20 RUBELLA SCREEN Expected: University of Pending 00:00:00 (ANNABELLA) IGG [code = 03/20/2021, [facility] dical 38970-6] Expires: Branch 03/20/2022 Diagnostic Test 2021-03-20 GALV ONLY - SYPHILIS Expected: Univ ersity of Pending 00:00:00 IGG/IGM [code = 03/20/2021, [place] [facility] 00788-0] Expires: Branch 03/20/2022 Diagnostic Test 2021-03-20 URINE CULTURE [code Expected: Unive rsity of Pending 00:00:00 = 630-4] 03/20/2021, [place] [facility] Expires: Branch 03/20/2022 Diagnostic Test 2021-03-20 VZV ANTIBODY SCREEN Expected: Unive rsity of Pending 00:00:00 [code = 79410-2] 03/20/2021, [place] [facility] Expires: Branch 03/20/2022 Diagnostic Test 2021-03-20 Glucose 1 Hour Post Expected: Unive rsity of Pending 00:00:00 Prandial [code = 03/20/2021, [place] [facility] 10439-4] Expires: Branch 03/20/2022 Diagnostic Test 2021-03-20 PAP Smear-Liquid Expected: Universi ty of Pending 00:00:00 Based [code = 15614] 03/20/2021, [facility] edical Expires: Branch 03/20/2022 Diagnostic Test 2021-03-20 CBC WITH DIFF [code Expected: Unive rsity of Pending 00:00:00 = 06406-1] 03/20/2021, [place] [facility] Expires: Branch 03/20/2022 Diagnostic Test 2021-03-20 GC & CHLAMYDIA Expected: University of Pending 00:00:00 AMPLIFIED ASSAY 03/20/2021, [place] [facility] [code = 74799-7] Expires: Branch 03/20/2022 Diagnostic Test 2021-03-20 HEPATITIS B SURFACE Expected: Unive rsity of Pending 00:00:00 ANTIGEN [code = 03/20/2021, [place] [facility] 92978-0] Expires: Branch 03/20/2022 Diagnostic Test 2021-03-20 HIV 1/2 AG-AB WITH Expected: Univer sity of Pending 00:00:00 REFLEX [code = 03/20/2021, [facility] 13600-8] Expires: Branch 03/20/2022 Diagnostic Test 2021-03-20 WORKUP, Expected: Universi ty of Pending 00:00:00 BLOOD BANK [code = 03/20/2021, [facility] ical 3113] Expires: Branch 03/20/2022 Diagnostic Test 2021-03-20 RUBELLA SCREEN Expected: University of Pending 00:00:00 (ANNABELLA) IGG [code = 03/20/2021, [facility] dical 48279-4] Expires: Branch 03/20/2022 Diagnostic Test 2021-03-20 GALV ONLY - SYPHILIS Expected: Univ ersity of Pending 00:00:00 IGG/IGM [code = 03/20/2021[facility] 77124[facility] Expires: Branch 03/20/2022 Diagnostic Test 2021-03-20 URINE CULTURE [code Expected: Unive rsity of Pending 00:00:00 = 630-4] 03/20/2021, [place] [facility] Expires: Branch 03/20/2022 Diagnostic Test 2021-03-20 VZV ANTIBODY SCREEN Expected: Unive rsity of Pending 00:00:00 [code = 33321-3] 03/20/2021, [place] [facility] Expires: Branch 03/20/2022 Diagnostic Test 2021-03-20 Glucose 1 Hour Post Expected: Unive rsity of Pending 00:00:00 Prandial [code = 03/20/2021, [place] [facility] 61440-1] Expires: Branch 03/20/2022 Diagnostic Test 2021-03-20 PAP Smear-Liquid Expected: [facility] of Pending 00:00:00 Based [code = 57850] 03/20/2021, [facility] edical Expires: Branch 03/20/2022 Diagnostic Test 2021-03-20 CBC WITH DIFF [code Expected: Unive rsity of Pending 00:00:00 = 01274-6] 03/20/2021, [place] [facility] Expires: Branch 03/20/2022 Diagnostic Test 2021-03-20 GC & CHLAMYDIA Expected: University of Pending 00:00:00 AMPLIFIED ASSAY 03/20/2021, [place] [facility] [code = 82968-0] Expires: Branch 03/20/2022 Diagnostic Test 2021-03-20 HEPATITIS B SURFACE Expected: Unive rsity of Pending 00:00:00 ANTIGEN [code = 03/20/2021[facility] 04830-8[facility] Expires: Branch 03/20/2022 Diagnostic Test 2021-03-20 HIV 1/2 AG-AB WITH Expected: Univer sity of Pending 00:00:00 REFLEX [code = 03/20/2021, [facility] 26385-4] Expires: Branch 03/20/2022 Diagnostic Test 2021-03-20 WORKUP, Expected: [facility] of Pending 00:00:00 BLOOD BANK [code = 03/20/2021, [facility] ical 3113] Expires: Branch 03/20/2022 Diagnostic Test 2021-03-20 RUBELLA SCREEN Expected: University Pending 00:00:00 (ANNABELLA) IGG [code = 03/20/2021, [facility] dical 17806-4] Expires: Branch 03/20/2022 Diagnostic Test 2021-03-20 GALV ONLY - SYPHILIS Expected: Univ ersity of Pending 00:00:00 IGG/IGM [code = 03/20/2021, [place] [facility] 32615-0] Expires: Branch 03/20/2022 Diagnostic Test 2021-03-20 URINE CULTURE [code Expected: Unive rsity of Pending 00:00:00 = 630-4] 03/20/2021, [facility] Expires: Branch 03/20/2022 Diagnostic Test 2021-03-20 VZV ANTIBODY SCREEN Expected: Unive rsity of Pending 00:00:00 [code = 69453-9] 03/20/2021, [place] [facility] Expires: Branch 03/20/2022 Diagnostic Test 2021-03-20 Glucose 1 Hour Post Expected: Unive rsity of Pending 00:00:00 Prandial [code = 03/20/2021, [place] [facility] 22444-9] Expires: Branch 03/20/2022 Diagnostic Test 2021-03-20 CBC WITH DIFF [code Expected: Unive rsity of Pending 00:00:00 = 52995-6] 03/20/2021, [place] [facility] Expires: Branch 03/20/2022 Diagnostic Test 2021-03-20 GC & CHLAMYDIA Expected: University of Pending 00:00:00 AMPLIFIED ASSAY 03/20/2021, [place] [facility] [code = 09984-0] Expires: Branch 03/20/2022 Diagnostic Test 2021-03-20 HEPATITIS B SURFACE Expected: Unive rsity of Pending 00:00:00 ANTIGEN [code = 03/20/2021[facility] 01369-9[facility] Expires: Branch 03/20/2022 Diagnostic Test 2021-03-20 HIV 1/2 AG-AB WITH Expected: Univer sity of Pending 00:00:00 REFLEX [code = 03/20/2021, [facility] 00177-4] Expires: Branch 03/20/2022 Diagnostic Test 2021-03-20 WORKUP, Expected: Universi ty of Pending 00:00:00 BLOOD BANK [code = 03/20/2021, [place] [facility] 3113] Expires: Branch 03/20/2022 Diagnostic Test 2021-03-20 RUBELLA SCREEN Expected: University Pending 00:00:00 (ANNABELLA) IGG [code = 03/20/2021, [facility] dicne 42758-9] Expires: Branch 03/20/2022 Diagnostic Test 2021-03-20 GALV ONLY - SYPHILIS Expected: Univ ersity of Pending 00:00:00 IGG/IGM [code = 03/20/2021[facility] 42016-9[facility] Expires: Branch 03/20/2022 Diagnostic Test 2021-03-20 URINE CULTURE [code Expected: Unive rsity of Pending 00:00:00 = 630-4] 03/20/2021, [facility] Expires: Branch 03/20/2022 Diagnostic Test 2021-03-20 VZV ANTIBODY SCREEN Expected: Unive rsity of Pending 00:00:00 [code = 46866-8] 03/20/2021[facility] Expires: Branch 03/20/2022 Future Scheduled 2020 Screening for University of Test 00:00:00 malignant neoplasm [place] [facility] of cervix Branch (procedure) [code = 332126065] Future Scheduled 2020 Screening for University of Test 00:00:00 malignant neoplasm [place] [facility] of cervix Branch (procedure) [code = 433035945] Future Scheduled 2020 Screening for University of Test 00:00:00 malignant neoplasm [place] [facility] of cervix Branch (procedure) [code = 354055668] Future Scheduled 2020 Screening for University of Test 00:00:00 malignant neoplasm [place] [facility] of cervix Branch (procedure) [code = 290392966] Future Scheduled 2020 Screening for University of Test 00:00:00 malignant neoplasm [place] [facility] of cervix Branch (procedure) [code = 920551608] Future Scheduled 2020 Screening for University of Test 00:00:00 malignant neoplasm [place] [facility] of cervix Branch (procedure) [code = 915996508] Future Scheduled 2018 DTaP,Tdap,and Td Univers ity of Test 00:00:00 Vaccines (1 - Tdap) [place] [facility] [code = Branch DTaP,Tdap,and Td Vaccines (1 - Tdap)] Future Scheduled 2018 DTaP,Tdap,and Td Univers ity of Test 00:00:00 Vaccines (1 - Tdap) [place] [facility] [code = Branch DTaP,Tdap,and Td Vaccines (1 - Tdap)] Future Scheduled 2018 DTaP,Tdap,and Td Univers ity of Test 00:00:00 Vaccines (1 - Tdap) [place] [facility] [code = Branch DTaP,Tdap,and Td Vaccines (1 - Tdap)] Future Scheduled 2018 DTaP,Tdap,and Td Univers ity of Test 00:00:00 Vaccines (1 - Tdap) [place] [facility] [code = Branch DTaP,Tdap,and Td Vaccines (1 - Tdap)] Future Scheduled 2018 DTaP,Tdap,and Td Univers ity of Test 00:00:00 Vaccines (1 - Tdap) [place] [facility] [code = Branch DTaP,Tdap,and Td Vaccines (1 - Tdap)] Future Scheduled 2018 DTaP,Tdap,and Td Univers ity of Test 00:00:00 Vaccines (1 - Tdap) [place] [facility] [code = Branch DTaP,Tdap,and Td Vaccines (1 - Tdap)] Future Scheduled 2017 Hepatitis C University of Test 00:00:00 screening [place] [facility] (procedure) [code = Branch 608386560] Future Scheduled 2017 Hepatitis C University of Test 00:00:00 screening [facility] (procedure) [code = Branch 750812979] Future Scheduled 2017 Hepatitis C University of Test 00:00:00 screening [facility] (procedure) [code = Branch 157768060] Future Scheduled 2017 Hepatitis C University of Test 00:00:00 screening [place] [facility] (procedure) [code = Branch 205350831] Future Scheduled 2017 Hepatitis C University of Test 00:00:00 screening [place] [facility] (procedure) [code = Branch 815748027] Future Scheduled 2017 Hepatitis C University of Test 00:00:00 screening [place] [facility] (procedure) [code = Branch 661617802] Future Scheduled 2015 SARS-CoV-2 University of Test 00:00:00 (COVID-19) Vaccine [place] [facility] (1) [code = Branch SARS-CoV-2 (COVID-19) Vaccine (1)] Future Scheduled 2015 Screening for University of Test 00:00:00 Chlamydia [place] [facility] trachomatis Branch (procedure) [code = 517119842] Future Scheduled 2015 SARS-CoV-2 University of Test 00:00:00 (COVID-19) Vaccine [place] [facility] (1) [code = Branch SARS-CoV-2 (COVID-19) Vaccine (1)] Future Scheduled 2015 Screening for University of Test 00:00:00 Chlamydia [place] [facility] trachomatis Branch (procedure) [code = 359989921] Future Scheduled 2015 SARS-CoV-2 University of Test 00:00:00 (COVID-19) Vaccine [place] [facility] (1) [code = Branch SARS-CoV-2 (COVID-19) Vaccine (1)] Future Scheduled 2015 Screening for University of Test 00:00:00 Chlamydia [place] [facility] trachomatis Branch (procedure) [code = 992696736] Future Scheduled 2015 SARS-CoV-2 University of Test 00:00:00 (COVID-19) Vaccine [place] [facility] (1) [code = Branch SARS-CoV-2 (COVID-19) Vaccine (1)] Future Scheduled 2015 Screening for University of Test 00:00:00 Chlamydia [place] [facility] trachomatis Branch (procedure) [code = 953622067] Future Scheduled 2015 SARS-CoV-2 University of Test 00:00:00 (COVID-19) Vaccine [place] [facility] (1) [code = Branch SARS-CoV-2 (COVID-19) Vaccine (1)] Future Scheduled 2015 Screening for University of Test 00:00:00 Chlamydia [place] [facility] trachomatis Branch (procedure) [code = 264344509] Future Scheduled 2015 SARS-CoV-2 University of Test 00:00:00 (COVID-19) Vaccine [place] [facility] (1) [code = Branch SARS-CoV-2 (COVID-19) Vaccine (1)] Future Scheduled 2015 Screening for University of Test 00:00:00 Chlamydia [place] [facility] trachomatis Branch (procedure) [code = 317118587] Future Scheduled 2011 Depression screening Uni versity of Test 00:00:00 (procedure) [code = [place] [facility] 702076299] Branch Future Scheduled 2011 Well child visit Univers ity of Test 00:00:00 (procedure) [code = [place] [facility] 553452476] Branch Future Scheduled 2011 Depression screening Uni versity of Test 00:00:00 (procedure) [code = [place] [facility] 088990594] Branch Future Scheduled 2011 Well child visit Univers ity of Test 00:00:00 (procedure) [code = [place] [facility] 405651684] Branch Future Scheduled 2011 Depression screening Uni versity of Test 00:00:00 (procedure) [code = [place] [facility] 411644654] Branch Future Scheduled 2011 Well child visit Univers ity of Test 00:00:00 (procedure) [code = [place] [facility] 627223207] Branch Future Scheduled 2011 Depression screening Uni versity of Test 00:00:00 (procedure) [code = [place] [facility] 969922795] Branch Future Scheduled 2011 Well child visit Univers ity of Test 00:00:00 (procedure) [code = [place] [facility] 850553566] Branch Future Scheduled 2011 Depression screening Uni versity of Test 00:00:00 (procedure) [code = [place] [facility] 815355683] Branch Future Scheduled 2011 Depression screening Uni versity of Test 00:00:00 (procedure) [code = [place] [facility] 853860566] Branch Future Scheduled 2011 Well child visit Univers ity of Test 00:00:00 (procedure) [code = [facility] dical 445893854] Branch Future Scheduled 2011 Well child visit Univers ity of Test 00:00:00 (procedure) [code = [facility] 109980159] Branch Future Scheduled 2010 HPV VACCINES (1 - Univer sity of Test 00:00:00 2-dose series) [code [place] [facility] = HPV VACCINES (1 - Branch 2-dose series)] Future Scheduled 2010 HPV VACCINES (1 - Univer sity of Test 00:00:00 2-dose series) [code [facility] = HPV VACCINES (1 - Branch 2-dose series)] Future Scheduled 2010 HPV VACCINES (1 - Univer sity of Test 00:00:00 2-dose series) [code [facility] = HPV VACCINES (1 - Branch 2-dose series)] Future Scheduled 2010 HPV VACCINES (1 - Univer sity of Test 00:00:00 2-dose series) [code [place] [facility] = HPV VACCINES (1 - Branch 2-dose series)] Future Scheduled 2010 HPV VACCINES (1 - Univer sity of Test 00:00:00 2-dose series) [code [facility] M ed[facility] = HPV VACCINES (1 - Branch 2-dose series)] Future Scheduled 2010 HPV VACCINES (1 - Univer sity of Test 00:00:00 2-dose series) [code [place] [facility] = HPV VACCINES (1 - Branch [...] SCREEN Univ ersity of Test [code = 79158-1] [facility] Future Scheduled Glucose 1 Hour Post Univ ersity of Test Prandial [code = [place] [facility] 05072-0] Branch Future Scheduled CBC WITH DIFF [code Univ ersity of Test = 76164-7] [facility] Branch Future Scheduled GC & CHLAMYDIA Universit y of Test AMPLIFIED [facility]AY [place] [facility] [code = 50406-7] Branch Future Scheduled HEPATITIS B SURFACE Univ ersity of Test ANTIGEN [code = [place] [facility] 29108-2] Branch Future Scheduled HIV 1/2 AG-AB WITH Unive rsity of Test REFLEX [code = [facility] 25950-7] Branch Future Scheduled RUBELLA SCREEN Universit y of Test (ANNABELLA) IGG [code = [place] [facility] 22933-9] Branch Future Scheduled GALV ONLY - [place] [facility] IGG/IGM [facility] 64398-6] Branch Future Scheduled URINE CULTURE [code Univ ersity of Test = 630-4] [facility] Future Scheduled VZV ANTIBODY SCREEN Univ ersity of Test [code = 91844-3] [facility] Branch Future Scheduled Glucose 1 Hour Post Univ ersity of Test Prandial [code = [facility] 75578-8] Branch Future Scheduled CBC WITH DIFF [code Univ ersity of Test = 00086-7] [facility] Future Scheduled GC & CHLAMYDIA Universit y of Test AMPLIFIED ASSAY [facility] [code = 42605-1] Branch Future Scheduled HEPATITIS B SURFACE Univ ers[facility] of Test ANTIGEN [code = [facility] 06616-7] Branch Future Scheduled HIV 1/2 AG-AB WITH Unive rsity of Test REFLEX [code = [facility] 71581-5] Branch Future Scheduled RUBELLA SCREEN Universit y of Test (ANNABELLA) IGG [code = [facility] dical 56425-0] Branch Future Scheduled GALV ONLY - [place] Uni versity of Test IGG/IGM [code = [facility] 58459-4] Branch Future Scheduled URINE CULTURE [code Univ ersity of Test = 630-4] [facility] Future Scheduled VZV ANTIBODY SCREEN Univ ersity of Test [code = 81388-5] [facility] Future Scheduled Glucose 1 Hour Post Univ ersity of Test Prandial [code = [facility] 59607-1] Branch Future Scheduled PAP Smear-Liquid Univers ity of Test Based [code = 03255] [facility] Branch Future Scheduled CBC WITH DIFF [code Univ ersity of Test = 41351-5] [facility] Future Scheduled GC & CHLAMYDIA Universit y of Test AMPLIFIED ASSAY [facility] [code = 70338-5] Branch Future Scheduled HEPATITIS B SURFACE [facility] ersity of Test ANTIGEN [code = [facility] 28348-0] Branch Future Scheduled HIV 1/2 AG-AB WITH Unive rsity of Test REFLEX [code = [facility] 25227-4] Branch Future Scheduled RUBELLA SCREEN Universit y of Test (ANNABELLA) IGG [code = [facility] dical 12312-3] Branch Future Scheduled GALV ONLY - [place] Uni versity of Test IGG/IGM [code = [facility] 92258-6] Branch Future Scheduled URINE CULTURE [code Univ ersity of Test = 630-4] [facility] Future Scheduled VZV ANTIBODY SCREEN Univ ersity of Test [code = 21800-2] [facility] Branch Future Scheduled Glucose 1 Hour Post Univ ers[facility] of Test Prandial [code = [facility] 44214-0] Branch Future Scheduled PAP Smear-Liquid Univers ity of Test Based [code = 15274] [facility] [place] Future Scheduled CBC WITH DIFF [code Univ ersity of Test = 24069-7] [facility] Future Scheduled GC & CHLAMYDIA [facility] Test AMPLIFIED [facility] [code = 92887-7] Branch Future Scheduled HEPATITIS B SURFACE Univ ersity of Test ANTIGEN [code = [facility] 37533-1] Branch Future Scheduled HIV 1/2 AG-AB WITH Unive rsity of Test REFLEX [code = [facility] 09576-0] Branch Future Scheduled RUBELLA SCREEN Universit y of Test (ANNABELLA) IGG [code = [facility] dical 85439-5] Branch Future Scheduled GALV ONLY - [place] Uni versity of Test IGG/IGM [code = [facility] 33382-3] Branch Future Scheduled URINE CULTURE [code Univ ersity of Test = 630-4] [facility] Future Scheduled VZV ANTIBODY SCREEN Univ ersity of Test [code = 61456-5] [facility] Branch Future Scheduled Glucose 1 Hour Post Univ ersity of Test Prandial [code = [facility] 68760-6] Branch Future Scheduled CBC WITH DIFF [code Univ ersity of Test = 93168-7] [facility] Future Scheduled GC & CHLAMYDIA [facility] Test AMPLIFIED [facility] [code = 56655-5] Branch Future Scheduled HEPATITIS B SURFACE Univ ersity of Test ANTIGEN [code = [facility] 45153-5] Branch Future Scheduled HIV 1/2 AG-AB WITH Unive rsity of Test REFLEX [code = [facility] 88805-8] Branch Future Scheduled RUBELLA SCREEN Universit y of Test (ANNABELLA) IGG [code = [place] [facility] 73799-7] Branch Future Scheduled GALV ONLY - [place] Uni versity of Test IGG/IGM [code = [facility] 42273-0] Branch Future Scheduled URINE CULTURE [code Univ ersity of Test = 630-4] [facility] Encounters Start End Encounter Admission Attending Care Care Encounter Source Date/Time Date/Time Type Type Clinicians Facility Department ID 2021-04-29 2021-04-29 Outpatient R MANPREET [facility] [id number] Univers 15:45:00 15:45:00 ROSHUNDA ity o [facility] 2021-04-29 2021-04-29 Outpatient Doreen CASE [facility] [id number] Univers 15:45:00 15:45:00 ROSNDA [id number] ity o [facility] 2021-04-17 2021-04-17 Outpatient R MANPREET [facility] [id number] Univers 12:45:00 12:45:00 ROSARGENTINANDA [id number] ity o [facility] 2021-04-17 2021-04-17 Outpatient Doreen CASE [facility] [id number] Univers 12:45:00 12:45:00 ROSARGENTINANDA ity o [facility] 2021-03-20 2021-03-20 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 ity of Visit REGIONAL 4.2.7.2.686 Mustapha as MATERNAL [id number] Med ical & CHILD [address] [place] [address] 2021-03-20 2021-03-20 Outpatient Doreen CASE [facility] [id number] Univers 13:00:00 13:00:00 ROSNDA [id number] ity o [facility] 2021-03-20 2021-03-20 Outpatient R [facility] [id number] Univers 12:30:00 12:30:00 ity of [facility] 2021-03-20 2021-03-20 Orders Doctor QUINTERO [id number] Univers 00:00:00 00:00:00 Only Unassigned, KAREN [id number] ity of [place] [facility] 4.2.7.2.686 Mustapha as [id number] [address] Results Test Description Test Time Test Comments [...] - Negative Lab Interpretation (test code = 01165-0) Normal General acute hospital URINALYSIS W/O SPECIFIC [id number] 18:40:00 Test Item Value Reference Range Interpretation [...] Negative Lab Interpretation (test code = Normal 33964-2[facility] [id number] 18:40:00 Test Item Value Reference Range Interpretation [...] Negative Lab Interpretation (test code = Normal 93362-6) General acute hospital URINALYSIS W/O SPECIFIC [id number] 18:40:00 Test Item Value Reference Range Interpretation [...] Negative Lab Interpretation (test code = Normal 52696-4) General acute hospital URINALYSIS W/O SPECIFIC [id number] 18:40:00 Test Item Value Reference Range Interpretation [...] Negative Lab Interpretation (test code = Normal 65442-5) General acute hospital URINALYSIS W/O SPECIFIC [id number] 18:40:00 Test Item Value Reference Range Interpretation [...] Negative Lab Interpretation (test code = Normal 44708-9) General acute hospital URINALYSIS W/O SPECIFIC [id number] 18:40:00 Test Item Value Reference Range Interpretation [...] Negative Lab Interpretation (test code = Normal 44603-7) General acute hospital URINALYSIS W/O SPECIFIC [id number] 18:40:00 Test Item Value Reference Range Interpretation [...] Negative Lab Interpretation (test code = Normal 29967-8) General acute hospital URINALYSIS W/O SPECIFIC [id number] 18:40:00 Test Item Value Reference Range Interpretation [...] Negative Lab Interpretation (test code = Normal 18553-7) General acute hospital URINALYSIS W/O SPECIFIC [id number] 18:40:00 Test Item Value Reference Range Interpretation [...] Negative Lab Interpretation (test code = Normal 03480-9) General acute hospital [id number] 18:39:00 Test Item Value Reference Range Interpretation Comments POCT PREG (test code = 1605) Positive On board controls acceptable with C Yes Line (test code = 3574) POCT PREG LOT # (test code = 3575) POCT PREG TEST DATE (test code = 3576) Lab Interpretation (test code = Normal 57594-4) General acute hospital [id number] 18:39:00 Test Item Value Reference Range Interpretation Comments POCT PREG (test code = 1605) Positive On board controls acceptable with C Yes Line (test code = 3574) POCT PREG LOT # (test code = 3575) POCT PREG TEST DATE (test code = 3576) Lab Interpretation (test code = Normal 48875-2) General acute hospital [id number] 18:39:00 Test Item Value Reference Range Interpretation Comments POCT PREG (test code = 1605) Positive On board controls acceptable with C Yes Line (test code = 3574) POCT PREG LOT # (test code = 3575) POCT PREG TEST DATE (test code = 3576) Lab Interpretation (test code = Normal 92091-2) General acute hospital [id number] 18:39:00 Test Item Value Reference Range Interpretation Comments POCT PREG (test code = 1605) Positive On board controls acceptable with C Yes Line (test code = 3574) POCT PREG LOT # (test code = 3575) POCT PREG TEST DATE (test code = 3576) Lab Interpretation (test code = Normal 68246-6) General acute hospital [id number] 18:39:00 Test Item Value Reference Range Interpretation Comments POCT PREG (test code = 1605) Positive On board controls acceptable with C Yes Line (test code = 3574) POCT PREG LOT # (test code = 3575) POCT PREG TEST DATE (test code = 3576) Lab Interpretation (test code = Normal 37139-5) General acute hospital [id number] 18:39:00 Test Item Value Reference Range Interpretation Comments POCT PREG (test code = 1605) Positive On board controls acceptable with C Yes Line (test code = 3574) POCT PREG LOT # (test code = 3575) POCT PREG TEST DATE (test code = 3576) Lab Interpretation (test code = Normal 08813-3) General acute hospital [id number] 18:39:00 Test Item Value Reference Range Interpretation Comments POCT PREG (test code = 1605) Positive On board controls acceptable with C Yes Line (test code = 3574) POCT PREG LOT # (test code = 3575) POCT PREG TEST DATE (test code = 3576) Lab Interpretation (test code = Normal 22528-7) General acute hospital [id number] 18:39:00 Test Item Value Reference Range Interpretation Comments POCT PREG (test code = 1605) Positive On board controls acceptable with C Yes Line (test code = 3574) POCT PREG LOT # (test code = 3575) POCT PREG TEST DATE (test code = 3576) Lab Interpretation (test code = Normal 50249-3) General acute hospital [id number] 18:39:00 Test Item Value Reference Range Interpretation Comments POCT PREG (test code = 1605) Positive On board controls acceptable with C Yes Line (test code = 3574) POCT PREG LOT # (test code = 3575) POCT PREG TEST DATE (test code = 3576) Lab Interpretation (test code = Normal 81200-7) General acute hospital [id number] 18:39:00 Test Item Value Reference Range Interpretation Comments POCT PREG (test code = 1605) Positive On board controls acceptable with C Yes Line (test code = 3574) POCT PREG LOT # (test code = 3575) POCT PREG TEST DATE (test code = 3576) Lab Interpretation (test code = Normal 09626-2) [facility]
[2021-10-28] MEDS ORDERED: Ringers Lactate 1,000 ML IV PRN (03:30)
[2021-10-28] MEDS ORDERED: Ringers Lactate 1,000 ML IV SCH (03:30)
[2021-10-28] MEDS ORDERED: METHYLERGONOVINE 0.2MG/ML AMP IM PRN (03:30)
[2021-10-28] MEDS ORDERED: OXYTOCIN/LR 20 UNIT/1,000 ML BAG IV SCH ×2 (03:30→14:00)
[2021-10-28] MEDS ORDERED: BUTORPHANOL 1 MG/ML INJ IV PRN (03:30)
[2021-10-28] MEDS ORDERED: PROMETHAZINE INJ 25 MG/ML AMP IM PRN (03:30)
[2021-10-28 05:06] VITALS: BMI 30.2
[2021-10-28 05:22] LABS: Absolute Lymphocytes (CBC) 2.1 K/uL (0.7-4.9); Basophils % 0.3 % (0-1.3); Hematocrit 30.8 % (36.0-45.0); Lymphocytes % 14.9 % (15.3-44.8); MPV 8.6 fL (7.6-11.3); RBC Red Blood Cell Count 3.45 M/uL (3.86-4.86)
[2021-10-28 05:24] LABS: Urine Appearance CLOUDY (Clear); Urine Bilirubin NEGATIVE (Negative); Urine Blood NEGATIVE (Negative); Urine Color YELLOW (Yellow); Urine Glucose NEGATIVE (Negative); Urine Protein TRACE (Negative); Urine Specific Gravity 1.025 (1.005-1.030)
[2021-10-28 05:27] LABS: Urine Microscopic Reflex ORDER UMIC
[2021-10-28 05:51] LABS: Urine Bacteria <20 /HPF (<20); Urine RBC <5 /HPF (NONE SEEN); Urine Urothelial Cells <5 /HPF (NONE SEEN)
[2021-10-28] MEDS ORDERED: ONDANSETRON 4 MG/2 ML VIAL IV PRN (07:16)
--- NOTE | 2021-10-28 07:41 | PREOPHP ---
Date of Admission: 10/28/2021 21-year-old, primigravida, 39 weeks and 3 days for induction. Pros and cons of this thoroughly discu ssed. The patient is 3 cm, 50% effaced, vertex, well applied, -1 station. Rupture of membranes, teresa ar fluid. She is mani regularly. The baby looks good. Good variability. Vital signs are al l stable. Admission given, anticipate delivery sometime later today. Family History: Mother with cancer of the uterus-cervix and just recently. Past Medical History: No serious medical illnesses. Past Surgical History: No previous surgeries. Allergies: ALLERGIC TO IODINE APPARENTLY, ALTHOUGH THIS WAS NOT NOTED ON HER RECORD INITIAL VISIT IN MARCH, SHE SUBSEQUENTLY SAID THAT SHE IS ALLERGIC TO IODINE. WE WILL USE HIBICLENS DURING E EXAMS. Medications: vitamins and iron prior to admission. Social History: Admitted to smoking during the . Physical Examination: HEENT: Clear. Pupils equal, round, reactive to light and accommodation. Conjunctivae well perfused . No oral, lingual, or buccal lesions. Chest and Lungs: Clear. Heart: Without murmurs, thrills, heaves, or rubs. Breasts: Without masses on previous visit. Abdomen: Term size. Extremities: Clear without edema, cyanosis, or clubbing. Baby is vertex. Pelvic exam as stated 3 cm, 50% effacement, well applied, -1 station. Clear fluid. The patient is mani every 2 minutes at this point. Anticipate more rapid progress in the next 2 to 3 hours. DAVE/TOM Voice ID: [id number]
[2021-10-28] MEDS ORDERED: FENTANYL CITR 100 MCG/2 ML IV ONE (08:45)
[2021-10-28] MEDS ORDERED: 0.2% ROPIVACAINE (200 MG/100 ML) BAG EP ONE (08:47)
[2021-10-28] MEDS ORDERED: LIDOCAINE 1% MPF 30 ML VIAL ONE (12:14)
--- NOTE | 2021-10-28 12:18 | PN ---
The patient has an epidural. Sometimes, she can barely move her legs. We will change the maintenanc e dose from 10 to 8. Baby looks good. Good variability. The patient is now 7 cm, 90% effaced, vert ex, +1 station. Right side of the cervix is little bit edematous, but not severely to this point. C annot quite tell the position of the baby's head. She is making good progress. We will check again in half an hour or so and when she gets complete, of course start pushing. Full discussion with the patient and . She is in active phase of labor at this point. DAVE/TOM Voice ID: [id number] Report ID: [id number]
[2021-10-28] MEDS ORDERED: Rho(D) IG (HUMAN) 300 MCG SYR IM PRN (13:28)
[2021-10-28] MEDS ORDERED: DOCUSATE NA/SENNA CONC 1 TAB PO PRN (13:28)
[2021-10-28] MEDS ORDERED: BISACODYL 10 MG RECTAL SUPP RC PRN (13:28)
[2021-10-28] MEDS ORDERED: Oxycodone HCl/Acetaminophen 1 TAB TAB PO PRN ×2 (13:28)
[2021-10-28] MEDS ORDERED: ACETAMINOPHEN 500 MG TAB PO PRN (13:28)
[2021-10-28] MEDS ORDERED: DIPHENHYDRAMINE 25 MG TAB/CAP PO PRN (13:28)
--- NOTE | 2021-10-28 15:09 | OP ---
Surgeon: Bharat Tom MD Procedure In Detail: Migdalia Wells is a 21-year-old, primigravida at 39 weeks and 3 days, came in for labor induction, 3 cm on admission, rupture of membranes, clear fluid. Stadol 1 mg IV, Zofran I V as she was nauseated and vomiting. At 3.5 cm, requested and received epidural anesthesia. This ga ve excellent effect during remainder of Labor and delivery. It was somewhat too heavy of an epidural . We moved the maintenance dose from 10 to 8. Even at that range, the patient's right leg was fairl y immobile. She went to complete, however, and pushed for about 20 to 25 minutes. Spontaneous vagin al delivery of a 6-pound and 14-ounce female, Apgars 9 and 10. Spontaneous, small second-degree lace ration, repaired with 2-0 chromic. Andreas delivery of the placenta. Estimated blood loss 350 cc. P lacenta inspected and noted to be intact and normal. Rh negative. Will be qualified for RhoGAM. Ru dick immune. Negative strep, negative COVID. Tolerated all procedures well. Final Diagnoses: Term intrauterine at 39 weeks and 3 days, vaginal delivery, epidural anes thesia. Rh negative. RhoGAM pending. DAVE/TOM Voice ID: [id number] Report ID: [id number]
[2021-10-28] MEDS: IBUPROFEN 600 MG TAB PO PRN ×2 (15:50→21:40)
[2021-10-29] MEDS: IBUPROFEN 600 MG TAB PO PRN (07:42)
--- NOTE | 2021-10-29 09:57 | DS ---
21-year-old primigravida, 39 weeks 3 days, delivered of a 6 pounds 14 ounces female, Apgars 9 and 10. A small second-degree laceration, repaired with 2-0 chromic. Martin delivery of the placenta. Est imated blood loss was 350 cc. Placenta inspected and noted to be intact and normal. The patient had epidural anesthesia. No post epidural problems. Rh negative. Baby's Rh positive. The patient has received her RhoGAM. Other immunizations discussed and suggested Tdap, flu shot, COVID immunization s. She will be dismissed later this afternoon. To report back to my office in 6 weeks for followup. To report any temperature elevation of 100 degrees or greater, severe pain, heavy bleeding, or any other type of abnormalities. She is immune to Rubella. COVID negative. Strep negative. Final Diagnoses: Term intrauterine 39 weeks 3 days, vaginal delivery, epidural anesthesia. RhoGAM administered. Other immunizations offered. DAVE/TOM Voice ID: [id number] Report ID: [id number]
--- NOTE | 2021-10-29 09:57 | PN ---
Patient is not completely dilated. Baby still looks good. She has minimal control of her right leg, but seems to be able to push adequately. We will begin pushing and anticipate delivery relatively s oon. DAVE/TOM Voice ID: [id number] Report ID: [id number]
[2021-10-29] MEDS ORDERED: Tdap (Diph,Pertuss(Acell),Tet Vac) 0.5 ML SYR IMVAC ONE (11:00)
[2021-10-29 15:12] VITALS: BP 131/86; TEMP 98.1
[2021-10-29 23:53] LABS: RPR (Rapid Plasma Reagin) NON-REACT (NON-REACT)
[2021-11-01 21:15] LABS: HBsAG Nonreactive (Nonreactive)
== END 2021-10-29 15:20 | disposition home or self-care (01) | DRG 807 ==
LOC: UNDOADMIN 09:29 → 2ND-WC 09:29
PROVIDERS: ADMIT Specialist; ATTEND Specialist
PROC: 10907ZC Drainage of Amniotic Fluid, Therapeutic from Products of Conception, Via Natural or Artificial Opening (ICD-10-PCS; principal; 2021-10-28)
PROC: 10E0XZZ Delivery of Products of Conception, External Approach (ICD-10-PCS; 2021-10-28)
PROC: 0KQM0ZZ Repair Perineum Muscle, Open Approach (ICD-10-PCS; 2021-10-28)
PROC: 3E033VJ Introduction of Other Hormone into Peripheral Vein, Percutaneous Approach (ICD-10-PCS; 2021-10-28)
PROC: 3E0234Z Introduction of Serum, Toxoid and Vaccine into Muscle, Percutaneous Approach (ICD-10-PCS; 2021-10-28)
DX: O70.1 Second degree perineal laceration during delivery (principal); Z37.0 Single live birth; Z3A.39 39 weeks gestation of pregnancy; O26.893 Other specified pregnancy related conditions, third trimester; Z67.91 Unspecified blood type, Rh negative; Z23 Encounter for immunization
CPT/HCPCS: 36415; 81003; 81015; 85025; 85461; 86592; 86850; 86870; 86901; 87086; 87088; 87340; 90471; 90715; 99218; J0595; J2405; J2550; J2590; J2790; J2795; J3010; J7120